=== PATIENT | male | born 1990 | race Caucasian/White ===

== ENCOUNTER 2018-12-16 11:20 | Emergency (ER) | payer OTHER ==
[~2018-12-16] VITALS: Ht 167.6 cm; Wt 70.0 kg
[2018-12-16] MEDS ORDERED: RISP.5 PO (12:03)
[2018-12-16 13:49] LABS: BASOPHILS % (AUTO) 1.1 % (0.0-2.0); EOSINOPHILS % (AUTO) 2.3 % (1.0-6.0); HEMATOCRIT 48.6 % (41-53); HEMOGLOBIN 16.8 g/dL (13.5-17.5); LYMPHOCYTES # (AUTO) 2.3 K/uL (1.0-4.8); LYMPHOCYTES % (AUTO) 27.4 % (22.0-44.0); MEAN CORPUSCULAR HEMOGLOBIN 29.4 pg (26.0-34.0); MEAN CORPUSCULAR HGB CONC 34.5 G/dL (31.0-37.0); MEAN CORPUSCULAR VOLUME 85 fL (80-100); MONOCYTES # (AUTO) 0.7 K/uL (0.1-1.0); MONOCYTES % (AUTO) 8.5 % (2.0-9.0); NEUTROPHILS % (AUTO) 60.7 % (40.0-70.0); PLATELET COUNT (AUTO) 251 K/uL (150-450); RED BLOOD CELL COUNT(AUTO) 5.71 MIL/uL (4.50-5.90); RED CELL DISTRIBUTION WIDTH 13.2 % (11.5-14.5)
[2018-12-16 13:57] LABS: ANION GAP 13 mmol/L (8-16); CALCIUM, TOTAL 9.4 mg/dL (8.8-10.5); CARBON DIOXIDE 28 mmol/L (22-29); CHLORIDE 103 mmol/L (98-107); CREATININE 1.07 mg/dL (0.60-1.30); GLOMERULAR FILTR. RATE CALC > 60 mL/min (>60); GLUCOSE,RANDOM 88 mg/dL (70-110); POTASSIUM 4.9 mmol/L (3.5-5.1); SODIUM SERUM 144 mmol/L (136-145); UREA NITROGEN, BLOOD 16 mg/dL (7-18)
[2018-12-16] MEDS ORDERED: ACETAMINOPHEN 325 MG TABLET PO ONE (14:00)
[2018-12-16 14:03] LABS: ALANINE AMINOTRANSFERASE 25 U/L (12-78); ALBUMIN 3.9 g/dL (3.4-5.0); ALKALINE PHOSPHATASE 83 U/L (46-116); ASPARTATE AMINOTRANSFERASE 17 U/L (15-37); BILIRUBIN,TOTAL 0.4 mg/dL (0.1-1.0); TOTAL PROTEIN, SERUM 7.9 g/dL (6.4-8.2)
[2018-12-16 14:08] VITALS: BP 111/81
== END 2018-12-16 14:27 | disposition home or self-care (01) ==
LOC: EMS 11:21
DX: R51 Headache (principal); F41.9 Anxiety disorder, unspecified; F20.9 Schizophrenia, unspecified
CPT/HCPCS: 70450

== ENCOUNTER 2018-12-17 07:00 | Emergency (ER) | payer OTHER ==
[~2018-12-17] VITALS: Ht 172.7 cm; Wt 69.5 kg
[~2018-12-17 07:00] MED LIST: RISP.5 PO
[2018-12-17 09:32] VITALS: BP 131/64
== END 2018-12-17 10:18 | disposition home or self-care (01) ==
LOC: EMS 07:02
DX: M62.838 Other muscle spasm (principal); F20.9 Schizophrenia, unspecified

== ENCOUNTER 2018-12-17 12:32 | Emergency (ER) | payer OTHER ==
[~2018-12-17] VITALS: Ht 172.7 cm; Wt 78.6 kg
[2018-12-17 14:30] VITALS: BP 122/79
== END 2018-12-17 14:53 | disposition home or self-care (01) ==
LOC: EMS 12:32
DX: M25.562 Pain in left knee (principal); F20.9 Schizophrenia, unspecified

== ENCOUNTER 2018-12-17 20:21 | Emergency (ER) | payer OTHER ==
[~2018-12-17] VITALS: Ht 172.7 cm; Wt 78.6 kg
[2018-12-17 21:36] VITALS: BP 136/79
== END 2018-12-17 21:51 | disposition home or self-care (01) ==
LOC: EMS 20:21
DX: K59.00 Constipation, unspecified (principal); K62.89 Other specified diseases of anus and rectum; G89.29 Other chronic pain; F20.9 Schizophrenia, unspecified

== ENCOUNTER 2018-12-18 13:15 | Emergency (ER) | payer OTHER ==
[~2018-12-18] VITALS: Ht 172.7 cm; Wt 78.6 kg
[2018-12-18 13:18] VITALS: BP 124/79
== END 2018-12-18 14:08 | disposition home or self-care (01) ==
LOC: EMS 13:15
DX: K59.00 Constipation, unspecified (principal); F20.9 Schizophrenia, unspecified

== ENCOUNTER 2018-12-19 01:47 | Emergency (ER) | payer OTHER ==
[~2018-12-19] VITALS: Ht 175.3 cm; Wt 79.5 kg
[2018-12-19 03:02] VITALS: BP 121/82
== END 2018-12-19 04:36 | disposition home or self-care (01) ==
LOC: EMS 01:48
DX: K59.00 Constipation, unspecified (principal); F20.9 Schizophrenia, unspecified; Z79.899 Other long term (current) drug therapy

== ENCOUNTER 2018-12-19 16:42 | Emergency (ER) | payer OTHER ==
[~2018-12-19] VITALS: Ht 167.6 cm; Wt 72.0 kg
[2018-12-19] MEDS ORDERED: MAGNESIUM CITRATE 300 ML ORAL SOLUTION PO ONE (17:45)
[2018-12-19 19:30] VITALS: BP 122/76
== END 2018-12-19 19:38 | disposition home or self-care (01) ==
LOC: EMS 16:45
DX: K59.00 Constipation, unspecified (principal); F20.9 Schizophrenia, unspecified

== ENCOUNTER 2018-12-20 11:53 | Emergency (ER) | payer OTHER ==
[~2018-12-20] VITALS: Ht 172.7 cm; Wt 77.3 kg
[2018-12-20 11:55] VITALS: BP 135/67
== END 2018-12-20 14:52 | disposition left against medical advice (07) ==
LOC: EMS 11:54
DX: F20.9 Schizophrenia, unspecified (principal)

== ENCOUNTER 2018-12-20 16:25 | Emergency (ER) | payer OTHER ==
[~2018-12-20] VITALS: Ht 162.6 cm; Wt 61.4 kg
[2018-12-20 18:40] LABS: BASOPHILS % (AUTO) 0.8 % (0.0-2.0); EOSINOPHILS % (AUTO) 2.8 % (1.0-6.0); HEMATOCRIT 46.2 % (41-53); HEMOGLOBIN 15.7 g/dL (13.5-17.5); LYMPHOCYTES # (AUTO) 3.1 K/uL (1.0-4.8); LYMPHOCYTES % (AUTO) 40.1 % (22.0-44.0); MEAN CORPUSCULAR HGB CONC 33.9 G/dL (31.0-37.0); MEAN CORPUSCULAR VOLUME 86 fL (80-100); MONOCYTES # (AUTO) 0.7 K/uL (0.1-1.0); MONOCYTES % (AUTO) 9.5 % (2.0-9.0); NEUTROPHILS # (AUTO) 3.6 K/uL (1.8-7.7); NEUTROPHILS % (AUTO) 46.8 % (40.0-70.0); PLATELET COUNT (AUTO) 259 K/uL (150-450)
[2018-12-20 18:54] LABS: ANION GAP 11 mmol/L (8-16); CARBON DIOXIDE 26 mmol/L (22-29); CHLORIDE 102 mmol/L (98-107); CREATININE 1.12 mg/dL (0.60-1.30); GLOMERULAR FILTR. RATE CALC > 60 mL/min (>60); GLUCOSE,RANDOM 82 mg/dL (70-110); POTASSIUM 3.4 mmol/L (3.5-5.1); SODIUM SERUM 139 mmol/L (136-145); UREA NITROGEN, BLOOD 15 mg/dL (7-18)
[2018-12-20 19:01] LABS: ALANINE AMINOTRANSFERASE 21 U/L (12-78); ALBUMIN 3.9 g/dL (3.4-5.0); ALKALINE PHOSPHATASE 77 U/L (46-116); ASPARTATE AMINOTRANSFERASE 16 U/L (15-37); BILIRUBIN,TOTAL 0.5 mg/dL (0.1-1.0); TOTAL PROTEIN, SERUM 7.5 g/dL (6.4-8.2)
[2018-12-20 19:31] LABS: AMPHET/METH SCREEN,URINE NEGATIVE (NEGATIVE); BARBITURATE SCREEN, URINE NEGATIVE (NEGATIVE); BENZODIAZEPINES SCREEN,URINE NEGATIVE (NEGATIVE); CANNABINOID SCREEN,URINE NEGATIVE (NEGATIVE); COCAINE SCREEN,URINE NEGATIVE (NEGATIVE); METHADONE SCREEN, URINE NEGATIVE (NEGATIVE); OPIATE SCREEN,URINE NEGATIVE (NEGATIVE); PHENCYCLIDINE SCREEN,URINE NEGATIVE (NEGATIVE)
[2018-12-20 20:15] VITALS: BP 121/74
== END 2018-12-20 20:20 | disposition home or self-care (01) ==
LOC: EMS 16:26
DX: F20.9 Schizophrenia, unspecified (principal); Z79.899 Other long term (current) drug therapy
CPT/HCPCS: 36415; 80053; 80307; 85025; 99284; G0480

== ENCOUNTER 2018-12-25 04:21 | Emergency (ER) | payer OTHER ==
[~2018-12-25] VITALS: Ht 167.6 cm; Wt 72.7 kg
[2018-12-25] MEDS ORDERED: ACETAMINOPHEN 325 MG TABLET PO ONE (05:00)
[2018-12-25] MEDS ORDERED: ACETAMINOPHEN 325 MG TABLET ONE (05:05)
[2018-12-25 05:40] VITALS: BP 138/71
== END 2018-12-25 05:56 | disposition home or self-care (01) ==
LOC: EMS 04:22
DX: M54.2 Cervicalgia (principal); F20.9 Schizophrenia, unspecified; Z79.899 Other long term (current) drug therapy

== ENCOUNTER 2018-12-25 11:47 | Emergency (ER) | payer OTHER ==
[~2018-12-25] VITALS: Ht 170.2 cm; Wt 68.2 kg
[2018-12-25] MEDS ORDERED: RisperiDONE 0.5 MG TABLET PO ONE (13:00)
[2018-12-25 13:18] VITALS: BP 128/86
== END 2018-12-25 13:21 | disposition home or self-care (01) ==
LOC: EMS 11:49
DX: F20.9 Schizophrenia, unspecified (principal); K59.00 Constipation, unspecified

== ENCOUNTER 2018-12-29 17:22 | Emergency (ER) | payer OTHER ==
[~2018-12-29] VITALS: Ht 172.7 cm; Wt 77.3 kg
[2018-12-29] MEDS ORDERED: RISP.5 PO (17:58)
[2018-12-29] MEDS ORDERED: QUET25TA PO (17:58)
[2018-12-29 18:22] LABS: BASOPHILS % (AUTO) 1.3 % (0.0-2.0); EOSINOPHILS % (AUTO) 2.5 % (1.0-6.0); HEMATOCRIT 44.5 % (41-53); HEMOGLOBIN 15.4 g/dL (13.5-17.5); LYMPHOCYTES # (AUTO) 3.1 K/uL (1.0-4.8); LYMPHOCYTES % (AUTO) 42.7 % (22.0-44.0); MEAN CORPUSCULAR HGB CONC 34.6 G/dL (31.0-37.0); MEAN CORPUSCULAR VOLUME 84 fL (80-100); MONOCYTES # (AUTO) 0.7 K/uL (0.1-1.0); MONOCYTES % (AUTO) 9.1 % (2.0-9.0); NEUTROPHILS # (AUTO) 3.2 K/uL (1.8-7.7); NEUTROPHILS % (AUTO) 44.4 % (40.0-70.0); PLATELET COUNT (AUTO) 256 K/uL (150-450); RED BLOOD CELL COUNT(AUTO) 5.31 MIL/uL (4.50-5.90); RED CELL DISTRIBUTION WIDTH 12.9 % (11.5-14.5)
[2018-12-29 18:44] LABS: ALANINE AMINOTRANSFERASE 23 U/L (12-78); ALBUMIN 3.9 g/dL (3.4-5.0); ALKALINE PHOSPHATASE 74 U/L (46-116); ANION GAP 12 mmol/L (8-16); ASPARTATE AMINOTRANSFERASE 19 U/L (15-37); BILIRUBIN,TOTAL 0.6 mg/dL (0.1-1.0); CALCIUM, TOTAL 9.4 mg/dL (8.8-10.5); CARBON DIOXIDE 25 mmol/L (22-29); CHLORIDE 102 mmol/L (98-107); CREATININE 1.21 mg/dL (0.60-1.30); GLOMERULAR FILTR. RATE CALC > 60 mL/min (>60); GLUCOSE,RANDOM 78 mg/dL (70-110); SODIUM SERUM 139 mmol/L (136-145); TOTAL PROTEIN, SERUM 7.3 g/dL (6.4-8.2)
[2018-12-29 18:59] LABS: UREA NITROGEN, BLOOD 18 mg/dL (7-18)
[2018-12-29 19:08] LABS: AMPHET/METH SCREEN,URINE NEGATIVE (NEGATIVE); BARBITURATE SCREEN, URINE NEGATIVE (NEGATIVE); BENZODIAZEPINES SCREEN,URINE NEGATIVE (NEGATIVE); CANNABINOID SCREEN,URINE NEGATIVE (NEGATIVE); COCAINE SCREEN,URINE NEGATIVE (NEGATIVE); METHADONE SCREEN, URINE NEGATIVE (NEGATIVE); OPIATE SCREEN,URINE NEGATIVE (NEGATIVE); PHENCYCLIDINE SCREEN,URINE NEGATIVE (NEGATIVE)
[2018-12-29] MEDS ORDERED: ACETAMINOPHEN 500 MG TABLET PO ONE (19:30)
[2018-12-29 20:32] LABS: APPEARANCE,URINE CLEAR (CLEAR); GLUCOSE, URINE (UA) NEGATIVE (NEGATIVE); KETONES,URINE 40 mg/dL (NEGATIVE); LEUKOCYTE ESTERASE ,URINE NEGATIVE (NEGATIVE); NITRATE,URINE NEGATIVE (NEGATIVE); OCCULT BLOOD,URINE NEGATIVE (NEGATIVE); PROTEIN,URINE NEGATIVE (NEGATIVE)
[2018-12-29 20:33] LABS: BILIRUBIN,URINE PRELIM. POSITIVE (NEGATIVE)
[2018-12-29 21:00] VITALS: BP 114/70
== END 2018-12-29 21:05 | disposition home or self-care (01) ==
LOC: EMS 17:23
DX: R51 Headache (principal); F20.9 Schizophrenia, unspecified; G24.01 Drug induced subacute dyskinesia

== ENCOUNTER 2018-12-31 18:21 | Emergency (ER) | payer OTHER ==
[~2018-12-31] VITALS: Ht 170.2 cm; Wt 77.3 kg
[~2018-12-31 18:21] MED LIST changes: +QUET25TA PO
[2018-12-31 21:15] VITALS: BP 105/72
== END 2018-12-31 21:16 | disposition home or self-care (01) ==
LOC: EMS 18:22
DX: K59.00 Constipation, unspecified (principal); F20.9 Schizophrenia, unspecified

== ENCOUNTER 2019-01-01 08:31 | Emergency (ER) | payer OTHER ==
[~2019-01-01] VITALS: Ht 172.7 cm; Wt 77.3 kg
[2019-01-01] MEDS ORDERED: MAGNESIUM CITRATE 300 ML ORAL SOLUTION PO ONE (09:45)
[2019-01-01 09:56] VITALS: BP 118/76
== END 2019-01-01 10:09 | disposition home or self-care (01) ==
LOC: EMS 08:31
DX: K59.00 Constipation, unspecified (principal); F20.9 Schizophrenia, unspecified

== ENCOUNTER 2019-01-02 06:31 | Emergency (ER) | payer OTHER ==
[~2019-01-02] VITALS: Ht 170.2 cm; Wt 77.3 kg
[2019-01-02] MEDS ORDERED: KETOROLAC TROMETHAMINE 60 MG/2 ML VIAL IM ONE (07:45)
[2019-01-02] MEDS ORDERED: OXYMETAZOLINE HCL 0.05% 15 ML NASAL SPRAY NASAL ONE (08:00)
[2019-01-02 08:30] VITALS: BP 112/79
== END 2019-01-02 09:04 | disposition home or self-care (01) ==
LOC: EMS 06:33
DX: R51 Headache (principal); J06.9 Acute upper respiratory infection, unspecified; F20.9 Schizophrenia, unspecified
CPT/HCPCS: 96372; 99283; J1885

== ENCOUNTER 2019-01-02 21:04 | Emergency (ER) | payer OTHER ==
[~2019-01-02] VITALS: Ht 170.2 cm; Wt 77.3 kg
[2019-01-02 21:22] VITALS: BP 113/66
[2019-01-03] MEDS ORDERED: MAGNESIUM CITRATE 300 ML ORAL SOLUTION PO ONE (01:30)
[2019-01-03] MEDS ORDERED: LORazepam 1 MG TABLET PO ONE (01:45)
[2019-01-03] MEDS ORDERED: PB/HYOSCY/ATR/SCOP/LIDO/MAALOX 55 ML BOTTLE PO ONE (01:45)
== END 2019-01-03 02:12 | disposition home or self-care (01) ==
LOC: EMS 21:06
DX: F20.9 Schizophrenia, unspecified (principal); K59.00 Constipation, unspecified; Z79.899 Other long term (current) drug therapy

== ENCOUNTER 2019-01-05 07:37 | Emergency (ER) | payer OTHER ==
[~2019-01-05] VITALS: Ht 170.2 cm; Wt 150.0 kg
[2019-01-05 10:12] VITALS: BP 114/66
== END 2019-01-05 10:17 | disposition home or self-care (01) ==
LOC: EMS 07:39
DX: J02.9 Acute pharyngitis, unspecified (principal); F20.9 Schizophrenia, unspecified
CPT/HCPCS: 87430

== ENCOUNTER 2019-01-05 13:35 | Emergency (ER) | payer OTHER ==
[~2019-01-05] VITALS: Ht 162.6 cm; Wt 77.3 kg
[2019-01-05 13:55] VITALS: BP 130/78
== END 2019-01-05 14:57 | disposition home or self-care (01) ==
LOC: EMS 13:36
DX: F20.0 Paranoid schizophrenia (principal); J02.9 Acute pharyngitis, unspecified

== ENCOUNTER 2019-01-06 21:41 | Emergency (ER) | payer OTHER ==
[~2019-01-06] VITALS: Ht 175.3 cm; Wt 80.9 kg
[2019-01-06 22:23] VITALS: BP 130/88
== END 2019-01-06 22:30 | disposition home or self-care (01) ==
LOC: EMS 21:41
DX: J03.90 Acute tonsillitis, unspecified (principal); F20.9 Schizophrenia, unspecified

== ENCOUNTER 2019-01-09 21:37 | Emergency (ER) | payer OTHER ==
[~2019-01-09] VITALS: Ht 170.2 cm; Wt 77.3 kg
[2019-01-09 22:23] VITALS: BP 118/70
== END 2019-01-09 22:39 | disposition home or self-care (01) ==
LOC: EMS 21:37
DX: H57.11 Ocular pain, right eye (principal); F20.9 Schizophrenia, unspecified

== ENCOUNTER 2019-01-11 00:06 | Emergency (ER) | payer OTHER ==
[~2019-01-11] VITALS: Ht 170.2 cm; Wt 77.3 kg
[2019-01-11 00:07] VITALS: BP 133/78
== END 2019-01-11 01:30 | disposition left against medical advice (07) ==
LOC: EMS 00:07
DX: R51 Headache (principal); Z53.21 Procedure and treatment not carried out due to patient leaving prior to being seen by health care provider

== ENCOUNTER 2019-01-15 16:41 | Emergency (ER) | payer OTHER ==
[~2019-01-15] VITALS: Ht 170.2 cm; Wt 72.7 kg
[2019-01-15 16:46] VITALS: BP 151/85
[2019-01-15] MEDS ORDERED: ACETAMINOPHEN 500 MG TABLET PO ONE (17:30)
[2019-01-16] MEDS ORDERED: OMEG-112 PO (18:05)
== END 2019-01-15 18:36 | disposition home or self-care (01) ==
LOC: EMS 16:42
DX: R51 Headache (principal); F20.9 Schizophrenia, unspecified

== ENCOUNTER 2019-01-16 18:03 | Emergency (ER) | payer OTHER ==
[~2019-01-16] VITALS: Ht 170.2 cm; Wt 75.0 kg
[2019-01-16] MEDS ORDERED: OMEG-112 PO (18:05)
[2019-01-16] MEDS ORDERED: ACETAMINOPHEN 325 MG TABLET PO ONE (20:00)
[2019-01-16 20:50] VITALS: BP 132/75
== END 2019-01-16 20:59 | disposition home or self-care (01) ==
LOC: EMS 18:03
DX: M25.552 Pain in left hip (principal); F20.9 Schizophrenia, unspecified; Z79.899 Other long term (current) drug therapy

== ENCOUNTER 2019-01-20 20:58 | Emergency (ER) | payer SELFPAY ==
[~2019-01-20] VITALS: Ht 170.2 cm; Wt 75.0 kg
[~2019-01-20 20:58] MED LIST changes: +OMEG-112 PO
[2019-01-20] MEDS ORDERED: NAPHAZOLINE/PHENIR 0.025-0.3% 15 ML OPHTHALMIC SOLUTION OU ONE (22:30)
[2019-01-20 23:20] VITALS: BP 121/77
== END 2019-01-20 23:40 | disposition home or self-care (01) ==
LOC: EMS 20:59
DX: H10.13 Acute atopic conjunctivitis, bilateral (principal); F20.9 Schizophrenia, unspecified

== ENCOUNTER 2019-01-22 08:08 | Emergency (ER) | payer SELFPAY ==
[~2019-01-22] VITALS: Ht 170.2 cm; Wt 72.7 kg
[2019-01-22 08:40] VITALS: BP 126/73
[2019-01-22] MEDS ORDERED: IBUPROFEN 600 MG TABLET PO ONE (08:45)
== END 2019-01-22 09:02 | disposition home or self-care (01) ==
LOC: EMS 08:09
DX: M25.512 Pain in left shoulder (principal); F20.9 Schizophrenia, unspecified

== ENCOUNTER 2019-01-22 16:59 | Emergency (ER) | payer SELFPAY ==
[~2019-01-22] VITALS: Ht 170.2 cm; Wt 72.7 kg
[2019-01-22 17:06] VITALS: BP 110/66
[2019-01-22] MEDS ORDERED: ACETAMINOPHEN 325 MG TABLET PO ONE (19:15)
== END 2019-01-22 19:19 | disposition home or self-care (01) ==
LOC: EMS 16:59
DX: M25.552 Pain in left hip (principal); F20.9 Schizophrenia, unspecified

== ENCOUNTER 2019-01-23 15:14 | Emergency (ER) | payer SELFPAY ==
[~2019-01-23] VITALS: Ht 170.2 cm; Wt 75.0 kg
[2019-01-23] MEDS ORDERED: HYPROMELLOSE 0.5% 15 ML OPHTHALMIC SOLUTION OU ONE (17:00)
[2019-01-23 17:39] VITALS: BP 115/79
== END 2019-01-23 17:40 | disposition home or self-care (01) ==
LOC: EMS 15:15
DX: H57.11 Ocular pain, right eye (principal); F20.9 Schizophrenia, unspecified

== ENCOUNTER 2019-01-25 17:40 | Emergency (ER) | payer OTHER ==
[~2019-01-25] VITALS: Ht 170.2 cm; Wt 77.3 kg
[2019-01-25] MEDS ORDERED: QUET25TA PO (17:45)
[2019-01-25] MEDS ORDERED: RISP.5 PO (17:45)
[2019-01-25] MEDS ORDERED: IBUPROFEN 600 MG TABLET PO ONE (19:00)
[2019-01-25] MEDS ORDERED: ACETAMINOPHEN 500 MG TABLET PO ONE (19:00)
[2019-01-25 19:20] VITALS: BP 130/74
[2019-01-29] MEDS ORDERED: LORA0.5T2 PO (03:24)
== END 2019-01-25 20:04 | disposition home or self-care (01) ==
LOC: EMS 17:41
DX: R51 Headache (principal); F20.9 Schizophrenia, unspecified; Z79.899 Other long term (current) drug therapy

== ENCOUNTER 2019-01-27 20:52 | Emergency (ER) | payer MEDICAID, OTHER ==
[~2019-01-27] VITALS: Ht 177.8 cm; Wt 81.8 kg
[~2019-01-27 20:52] MED LIST changes: -OMEG-112 PO
[2019-01-27 21:25] VITALS: BP 126/91
[2019-01-27 23:43] LABS: BASOPHILS % (AUTO) 1.2 % (0.0-2.0); EOSINOPHILS % (AUTO) 4.9 % (1.0-6.0); HEMATOCRIT 44.4 % (41-53); HEMOGLOBIN 14.8 g/dL (13.5-17.5); LYMPHOCYTES # (AUTO) 3.3 K/uL (1.0-4.8); LYMPHOCYTES % (AUTO) 45.1 % (22.0-44.0); MEAN CORPUSCULAR HEMOGLOBIN 28.8 pg (26.0-34.0); MEAN CORPUSCULAR HGB CONC 33.4 G/dL (31.0-37.0); MEAN CORPUSCULAR VOLUME 86 fL (80-100); MONOCYTES # (AUTO) 0.6 K/uL (0.1-1.0); MONOCYTES % (AUTO) 8.7 % (2.0-9.0); NEUTROPHILS % (AUTO) 40.1 % (40.0-70.0); RED BLOOD CELL COUNT(AUTO) 5.14 MIL/uL (4.50-5.90); RED CELL DISTRIBUTION WIDTH 13.4 % (11.5-14.5)
[2019-01-27 23:54] LABS: ANION GAP 7 mmol/L (8-16); CALCIUM, TOTAL 9.1 mg/dL (8.8-10.5); CARBON DIOXIDE 27 mmol/L (22-29); CHLORIDE 104 mmol/L (98-107); CREATININE 0.99 mg/dL (0.60-1.30); GLOMERULAR FILTR. RATE CALC > 60 mL/min (>60); GLUCOSE,RANDOM 84 mg/dL (70-110); PLATELET COUNT (AUTO) 225 K/uL (150-450); SODIUM SERUM 138 mmol/L (136-145); UREA NITROGEN, BLOOD 22 mg/dL (7-18)
[2019-01-27 23:59] LABS: ALANINE AMINOTRANSFERASE 26 U/L (12-78); ALBUMIN 3.9 g/dL (3.4-5.0); ALKALINE PHOSPHATASE 74 U/L (46-116); ASPARTATE AMINOTRANSFERASE 20 U/L (15-37); BILIRUBIN,TOTAL 0.5 mg/dL (0.1-1.0); TOTAL PROTEIN, SERUM 7.4 g/dL (6.4-8.2)
[2019-01-29] MEDS ORDERED: LORA0.5T2 PO (03:24)
== END 2019-01-28 01:05 | disposition home or self-care (01) ==
LOC: EMS 20:52
DX: F20.9 Schizophrenia, unspecified (principal)
CPT/HCPCS: 36415; 80053; 85025; 99284; G0480

== ENCOUNTER 2019-01-29 08:10 | Emergency (ER) | payer MEDICAID ==
[~2019-01-29] VITALS: Ht 170.2 cm; Wt 77.3 kg
[~2019-01-29 08:10] MED LIST changes: +LORA0.5T2 PO
[2019-01-29 09:56] VITALS: BP 120/69
== END 2019-01-29 09:46 | disposition home or self-care (01) ==
LOC: EMS 08:27
DX: F20.9 Schizophrenia, unspecified (principal); G40.909 Epilepsy, unspecified, not intractable, without status epilepticus; Z59.0 Homelessness; Z79.899 Other long term (current) drug therapy

== ENCOUNTER 2019-02-10 00:53 | Emergency (ER) | payer MEDICAID ==
[~2019-02-10] VITALS: Ht 170.2 cm; Wt 68.2 kg
[~2019-02-10 00:53] MED LIST changes: +ARIP15TA2 PO; -LORA0.5T2 PO; -QUET25TA PO; -RISP.5 PO
[2019-02-10 01:59] LABS: BASOPHILS % (AUTO) 1.3 % (0.0-2.0); EOSINOPHILS % (AUTO) 7.6 % (1.0-6.0); HEMATOCRIT 44.2 % (41-53); LYMPHOCYTES # (AUTO) 3.2 K/uL (1.0-4.8); LYMPHOCYTES % (AUTO) 47.6 % (22.0-44.0); MEAN CORPUSCULAR HEMOGLOBIN 29.3 pg (26.0-34.0); MEAN CORPUSCULAR HGB CONC 33.9 G/dL (31.0-37.0); MEAN CORPUSCULAR VOLUME 87 fL (80-100); MONOCYTES # (AUTO) 0.6 K/uL (0.1-1.0); MONOCYTES % (AUTO) 9.2 % (2.0-9.0); NEUTROPHILS # (AUTO) 2.3 K/uL (1.8-7.7); NEUTROPHILS % (AUTO) 34.3 % (40.0-70.0); PLATELET COUNT (AUTO) 255 K/uL (150-450); RED BLOOD CELL COUNT(AUTO) 5.11 MIL/uL (4.50-5.90); RED CELL DISTRIBUTION WIDTH 13.2 % (11.5-14.5)
[2019-02-10 02:08] LABS: ANION GAP 5 mmol/L (8-16); CARBON DIOXIDE 34 mmol/L (22-29); CHLORIDE 105 mmol/L (98-107); CREATININE 1.39 mg/dL (0.60-1.30); GLOMERULAR FILTR. RATE CALC > 60 mL/min (>60); GLUCOSE,RANDOM 66 mg/dL (70-110); SODIUM SERUM 144 mmol/L (136-145); UREA NITROGEN, BLOOD 24 mg/dL (7-18)
[2019-02-10 02:13] LABS: ALANINE AMINOTRANSFERASE 27 U/L (12-78); ALBUMIN 3.5 g/dL (3.4-5.0); ALKALINE PHOSPHATASE 82 U/L (46-116); ASPARTATE AMINOTRANSFERASE 17 U/L (15-37); BILIRUBIN,TOTAL 0.3 mg/dL (0.1-1.0)
[2019-02-10 05:09] LABS: AMPHET/METH SCREEN,URINE NEGATIVE (NEGATIVE); BARBITURATE SCREEN, URINE NEGATIVE (NEGATIVE); BENZODIAZEPINES SCREEN,URINE NEGATIVE (NEGATIVE); CANNABINOID SCREEN,URINE NEGATIVE (NEGATIVE); COCAINE SCREEN,URINE NEGATIVE (NEGATIVE); METHADONE SCREEN, URINE NEGATIVE (NEGATIVE); OPIATE SCREEN,URINE NEGATIVE (NEGATIVE); PHENCYCLIDINE SCREEN,URINE NEGATIVE (NEGATIVE)
[2019-02-10 09:47] VITALS: BP 118/74
== END 2019-02-10 10:02 | disposition home or self-care (01) ==
LOC: EMS 00:56
DX: F25.9 Schizoaffective disorder, unspecified (principal); F32.9 Major depressive disorder, single episode, unspecified; Z79.899 Other long term (current) drug therapy
CPT/HCPCS: 36415; 80053; 80307; 85025; 99284; G0480

== ENCOUNTER 2019-02-10 21:42 | Emergency (ER) | payer MEDICAID ==
[~2019-02-10] VITALS: Ht 167.6 cm; Wt 63.6 kg
[2019-02-11 00:13] VITALS: BP 142/78
== END 2019-02-11 00:33 | disposition home or self-care (01) ==
LOC: EMS 21:46
DX: R25.2 Cramp and spasm (principal); G40.909 Epilepsy, unspecified, not intractable, without status epilepticus; F20.9 Schizophrenia, unspecified; Z79.899 Other long term (current) drug therapy

== ENCOUNTER 2019-02-24 23:09 | Emergency (ER) | payer MEDICAID ==
[~2019-02-24] VITALS: Ht 170.2 cm; Wt 75.0 kg
[2019-02-25 03:55] LABS: BASOPHILS % (AUTO) 1.1 % (0.0-2.0); EOSINOPHILS % (AUTO) 3.7 % (1.0-6.0); HEMATOCRIT 42.8 % (41-53); HEMOGLOBIN 14.5 g/dL (13.5-17.5); LYMPHOCYTES % (AUTO) 50.8 % (22.0-44.0); MEAN CORPUSCULAR HEMOGLOBIN 29.5 pg (26.0-34.0); MEAN CORPUSCULAR HGB CONC 33.8 G/dL (31.0-37.0); MEAN CORPUSCULAR VOLUME 87 fL (80-100); MONOCYTES # (AUTO) 0.7 K/uL (0.1-1.0); MONOCYTES % (AUTO) 8.5 % (2.0-9.0); NEUTROPHILS # (AUTO) 2.8 K/uL (1.8-7.7); NEUTROPHILS % (AUTO) 35.9 % (40.0-70.0); PLATELET COUNT (AUTO) 250 K/uL (150-450); RED BLOOD CELL COUNT(AUTO) 4.91 MIL/uL (4.50-5.90); RED CELL DISTRIBUTION WIDTH 13.8 % (11.5-14.5)
[2019-02-25 03:59] LABS: ANION GAP 9 mmol/L (8-16); CALCIUM, TOTAL 8.7 mg/dL (8.8-10.5); CARBON DIOXIDE 26 mmol/L (22-29); CHLORIDE 106 mmol/L (98-107); CREATININE 1.05 mg/dL (0.60-1.30); GLOMERULAR FILTR. RATE CALC > 60 mL/min (>60); GLUCOSE,RANDOM 89 mg/dL (70-110); POTASSIUM 3.8 mmol/L (3.5-5.1); SODIUM SERUM 141 mmol/L (136-145); UREA NITROGEN, BLOOD 13 mg/dL (7-18)
[2019-02-25 04:01] LABS: AMPHET/METH SCREEN,URINE NEGATIVE (NEGATIVE); BARBITURATE SCREEN, URINE NEGATIVE (NEGATIVE); BENZODIAZEPINES SCREEN,URINE NEGATIVE (NEGATIVE); CANNABINOID SCREEN,URINE NEGATIVE (NEGATIVE); COCAINE SCREEN,URINE NEGATIVE (NEGATIVE); METHADONE SCREEN, URINE NEGATIVE (NEGATIVE); OPIATE SCREEN,URINE NEGATIVE (NEGATIVE); PHENCYCLIDINE SCREEN,URINE NEGATIVE (NEGATIVE)
[2019-02-25 04:04] LABS: ALANINE AMINOTRANSFERASE 32 U/L (12-78); ALBUMIN 3.3 g/dL (3.4-5.0); ALKALINE PHOSPHATASE 76 U/L (46-116); ASPARTATE AMINOTRANSFERASE 22 U/L (15-37); BILIRUBIN,TOTAL 0.3 mg/dL (0.1-1.0); TOTAL PROTEIN, SERUM 6.8 g/dL (6.4-8.2)
[2019-02-25 04:35] VITALS: BP 122/84
== END 2019-02-25 04:37 | disposition home or self-care (01) ==
LOC: EMS 23:10
DX: F20.9 Schizophrenia, unspecified (principal)
CPT/HCPCS: 36415; 80053; 80307; 85025; 99284; G0480

== ENCOUNTER 2019-02-25 11:06 | Emergency (ER) | payer MEDICAID ==
[~2019-02-25] VITALS: Ht 170.2 cm; Wt 75.0 kg
[2019-02-25 13:18] VITALS: BP 131/66
== END 2019-02-25 13:24 | disposition home or self-care (01) ==
LOC: EMS 11:06
DX: F20.9 Schizophrenia, unspecified (principal); R51 Headache; G40.909 Epilepsy, unspecified, not intractable, without status epilepticus; Z79.899 Other long term (current) drug therapy

== ENCOUNTER 2019-02-26 20:10 | Inpatient (IN) | payer MEDICAID ==
[~2019-02-26] VITALS: Ht 170.2 cm; Wt 71.7 kg
[2019-02-26 21:12] LABS: BASOPHILS % (AUTO) 1.2 % (0.0-2.0); HEMATOCRIT 45.5 % (41-53); HEMOGLOBIN 15.3 g/dL (13.5-17.5); LYMPHOCYTES # (AUTO) 3.5 K/uL (1.0-4.8); LYMPHOCYTES % (AUTO) 41.1 % (22.0-44.0); MEAN CORPUSCULAR HEMOGLOBIN 29.3 pg (26.0-34.0); MEAN CORPUSCULAR HGB CONC 33.5 G/dL (31.0-37.0); MEAN CORPUSCULAR VOLUME 87 fL (80-100); MONOCYTES # (AUTO) 0.8 K/uL (0.1-1.0); MONOCYTES % (AUTO) 9.3 % (2.0-9.0); NEUTROPHILS # (AUTO) 3.8 K/uL (1.8-7.7); NEUTROPHILS % (AUTO) 44.4 % (40.0-70.0); PLATELET COUNT (AUTO) 266 K/uL (150-450); RED BLOOD CELL COUNT(AUTO) 5.22 MIL/uL (4.50-5.90); RED CELL DISTRIBUTION WIDTH 13.7 % (11.5-14.5)
[2019-02-26 21:29] LABS: ANION GAP 5 mmol/L (8-16); CALCIUM, TOTAL 9.1 mg/dL (8.8-10.5); CARBON DIOXIDE 31 mmol/L (22-29); CHLORIDE 107 mmol/L (98-107); CREATININE 1.02 mg/dL (0.60-1.30); GLOMERULAR FILTR. RATE CALC > 60 mL/min (>60); GLUCOSE,RANDOM 88 mg/dL (70-110); POTASSIUM 4.2 mmol/L (3.5-5.1); SODIUM SERUM 143 mmol/L (136-145); UREA NITROGEN, BLOOD 14 mg/dL (7-18)
[2019-02-26 21:36] LABS: ALANINE AMINOTRANSFERASE 27 U/L (12-78); ALBUMIN 3.4 g/dL (3.4-5.0); ALKALINE PHOSPHATASE 79 U/L (46-116); ASPARTATE AMINOTRANSFERASE 17 U/L (15-37); BILIRUBIN,TOTAL 0.2 mg/dL (0.1-1.0); TOTAL PROTEIN, SERUM 7.2 g/dL (6.4-8.2)
[2019-02-26 23:14] LABS: AMPHET/METH SCREEN,URINE NEGATIVE (NEGATIVE); BARBITURATE SCREEN, URINE NEGATIVE (NEGATIVE); BENZODIAZEPINES SCREEN,URINE NEGATIVE (NEGATIVE); CANNABINOID SCREEN,URINE NEGATIVE (NEGATIVE); COCAINE SCREEN,URINE NEGATIVE (NEGATIVE); METHADONE SCREEN, URINE NEGATIVE (NEGATIVE); OPIATE SCREEN,URINE NEGATIVE (NEGATIVE)
[2019-02-26 23:15] LABS: PHENCYCLIDINE SCREEN,URINE NEGATIVE (NEGATIVE)
[2019-02-27] MEDS ORDERED: ZOLPIDEM TARTRATE 10 MG TABLET PO PRN (03:00)
[2019-02-27] MEDS ORDERED: HALOPERIDOL 5 MG TABLET PO PRN (03:00)
[2019-02-27 04:39] LABS: APPEARANCE,URINE CLOUDY (CLEAR); BILIRUBIN,URINE NEGATIVE (NEGATIVE); GLUCOSE, URINE (UA) NEGATIVE (NEGATIVE); KETONES,URINE NEGATIVE (NEGATIVE); LEUKOCYTE ESTERASE ,URINE NEGATIVE (NEGATIVE); NITRATE,URINE NEGATIVE (NEGATIVE); OCCULT BLOOD,URINE NEGATIVE (NEGATIVE); PH,URINE 5.5 (5.0-8.0); PROTEIN,URINE NEGATIVE (NEGATIVE); UROBILINOGEN,URINE 0.2 mg/dL (<=1.0)
[2019-02-27] MEDS: LORazepam 2 MG TABLET PO PRN (13:24)
[2019-02-27 20:45] VITALS: BP 107/74
[2019-02-27] MEDS ORDERED: PETROLATUM,WHITE 28 GM JELLY TP PRN (20:45)
[2019-02-27] MEDS ORDERED: GuaiFENesin/D-METHORPHAN [SUGAR-FREE] 200-20MG/10 ML SYRUP UDCUP PO PRN (20:45)
[2019-02-27] MEDS ORDERED: IBUPROFEN 400 MG TABLET PO PRN (20:45)
[2019-02-27] MEDS ORDERED: ALBUTEROL SULFATE HFA 90 MCG/PUFF 8 GM INHALER IH PRN (20:45)
[2019-02-27] MEDS ORDERED: LOPERAMIDE HCL 2 MG CAPSULE PO PRN (20:45)
[2019-02-27] MEDS ORDERED: ACETAMINOPHEN 325 MG TABLET PO PRN (20:45)
[2019-02-27] MEDS ORDERED: MAG HYDROX/AL HYDROX/SIMETH ES 30 ML SUSPENSION UDCUP PO PRN (20:45)
[2019-02-27] MEDS ORDERED: DOCUSATE SODIUM 100 MG CAPSULE PO PRN (20:45)
[2019-02-27] MEDS ORDERED: ONDANSETRON HCL 4 MG TABLET PO PRN (20:45)
[2019-02-27] MEDS ORDERED: CloNIDine HCL 0.1 MG TABLET PO PRN (20:45)
[2019-02-28 05:42] LABS: BASOPHILS % (AUTO) 0.8 % (0.0-2.0); EOSINOPHILS % (AUTO) 3.7 % (1.0-6.0); HEMATOCRIT 45.1 % (41-53); HEMOGLOBIN 15.1 g/dL (13.5-17.5); LYMPHOCYTES # (AUTO) 3.3 K/uL (1.0-4.8); LYMPHOCYTES % (AUTO) 39.4 % (22.0-44.0); MEAN CORPUSCULAR HEMOGLOBIN 29.3 pg (26.0-34.0); MEAN CORPUSCULAR HGB CONC 33.6 G/dL (31.0-37.0); MEAN CORPUSCULAR VOLUME 87 fL (80-100); MONOCYTES # (AUTO) 0.8 K/uL (0.1-1.0); MONOCYTES % (AUTO) 9.4 % (2.0-9.0); NEUTROPHILS # (AUTO) 3.9 K/uL (1.8-7.7); NEUTROPHILS % (AUTO) 46.7 % (40.0-70.0); PLATELET COUNT (AUTO) 227 K/uL (150-450); RED BLOOD CELL COUNT(AUTO) 5.17 MIL/uL (4.50-5.90); RED CELL DISTRIBUTION WIDTH 13.6 % (11.5-14.5)
[2019-02-28 05:52] LABS: HEMOGLOBIN A1C 5.2 % (4.5-6.2)
[2019-02-28 06:08] LABS: CHOL/HDL RATIO 3.6 (4.2-7.3); THYROID STIMULATING HORMONE 1.09 uIU/mL (0.36-3.74)
[2019-02-28 08:00] VITALS: BP 137/77
[2019-02-28] MEDS: ARIPiprazole 15 MG TABLET PO SCH (09:01)
[2019-02-28] MEDS: LORazepam 2 MG TABLET PO PRN (09:20)
[2019-02-28 17:06] VITALS: BP 96/55
[2019-03-01 08:05] VITALS: BP 118/74
[2019-03-01] MEDS: ARIPiprazole 15 MG TABLET PO SCH (09:34)
[2019-03-01 16:45] VITALS: BP 111/57
[2019-03-02 08:05] VITALS: BP 107/65
[2019-03-02] MEDS: ARIPiprazole 15 MG TABLET PO SCH (09:15)
[2019-03-02 17:15] VITALS: BP 98/57
[2019-03-03 08:00] VITALS: BP 109/73
[2019-03-03] MEDS: ARIPiprazole 15 MG TABLET PO SCH (08:26)
[2019-03-03] MEDS: MAGNESIUM HYDROXIDE SUSPENSION 30 ML UDCUP PO PRN (08:55)
[2019-03-03] MEDS ORDERED: ARIPiprazole 10 MG TABLET PO SCH (09:00)
[2019-03-03] MEDS ORDERED: ARIPiprazole LAUROXIL ER SUSPENSION 882 MG/3.2 ML SYRINGE IM SCH (15:15)
[2019-03-03 16:50] VITALS: BP 110/71
[2019-03-04 08:05] VITALS: BP 104/71
[2019-03-04] MEDS: ARIPiprazole 15 MG TABLET PO SCH (09:45)
[2019-03-04 16:47] VITALS: BP 108/69
[2019-03-05 07:37] LABS: APPEARANCE,URINE CLEAR (CLEAR); BILIRUBIN,URINE NEGATIVE (NEGATIVE); GLUCOSE, URINE (UA) NEGATIVE (NEGATIVE); KETONES,URINE NEGATIVE (NEGATIVE); LEUKOCYTE ESTERASE ,URINE NEGATIVE (NEGATIVE); NITRATE,URINE NEGATIVE (NEGATIVE); OCCULT BLOOD,URINE NEGATIVE (NEGATIVE); PROTEIN,URINE NEGATIVE (NEGATIVE); UROBILINOGEN,URINE 0.2 mg/dL (<=1.0)
[2019-03-05] MEDS: ARIPiprazole 15 MG TABLET PO SCH (08:15)
[2019-03-05 09:25] VITALS: BP 117/67
[2019-03-05 16:22] VITALS: BP 101/73
[2019-03-06 08:05] VITALS: BP 108/76
[2019-03-06] MEDS: ARIPiprazole 15 MG TABLET PO SCH (08:49)
[2019-03-06] MEDS: MAGNESIUM HYDROXIDE SUSPENSION 30 ML UDCUP PO PRN (10:55)
[2019-03-08] MEDS ORDERED: ARIP882S IM (13:30)
== END 2019-03-06 15:15 | disposition home or self-care (01) | DRG 750 ==
LOC: EMS 20:11 → 3EI 02-27 19:13
PROVIDERS: ADMIT Psychiatry & Neurology Psychiatry; ATTEND Psychiatry & Neurology Psychiatry
DX: F20.0 Paranoid schizophrenia (principal); R45.851 Suicidal ideations; F20.2 Catatonic schizophrenia; G40.909 Epilepsy, unspecified, not intractable, without status epilepticus; K59.00 Constipation, unspecified; F32.9 Major depressive disorder, single episode, unspecified; R45.87 Impulsiveness; Z59.0 Homelessness; Z91.19 Patient's noncompliance with other medical treatment and regimen; Z79.899 Other long term (current) drug therapy
CPT/HCPCS: 83036; 84443; 87081; G0480

== ENCOUNTER 2019-05-16 20:56 | Emergency (ER) | payer OTHER ==
[~2019-05-16] VITALS: Ht 170.2 cm; Wt 81.8 kg
[~2019-05-16 20:56] MED LIST changes: -ARIP15TA2 PO; +ARIP882S IM
[2019-05-16 21:10] VITALS: BP 116/78
[2019-05-16] MEDS ORDERED: ARIP2 PO (21:13)
[2019-05-16] MEDS ORDERED: DIVA125T32 PO (21:13)
[2019-05-16 21:48] LABS: BASOPHILS % (AUTO) 1.1 % (0.0-2.0); EOSINOPHILS % (AUTO) 3.2 % (1.0-6.0); HEMATOCRIT 48.2 % (41-53); HEMOGLOBIN 15.8 g/dL (13.5-17.5); LYMPHOCYTES # (AUTO) 3.7 K/uL (1.0-4.8); MEAN CORPUSCULAR HEMOGLOBIN 29.5 pg (26.0-34.0); MEAN CORPUSCULAR HGB CONC 32.9 G/dL (31.0-37.0); MEAN CORPUSCULAR VOLUME 90 fL (80-100); MONOCYTES # (AUTO) 0.9 K/uL (0.1-1.0); MONOCYTES % (AUTO) 10.1 % (2.0-9.0); NEUTROPHILS # (AUTO) 4.2 K/uL (1.8-7.7); NEUTROPHILS % (AUTO) 45.6 % (40.0-70.0); PLATELET COUNT (AUTO) 220 K/uL (150-450); RED BLOOD CELL COUNT(AUTO) 5.36 MIL/uL (4.50-5.90); RED CELL DISTRIBUTION WIDTH 13.4 % (11.5-14.5)
[2019-05-16 21:58] LABS: ANION GAP 9 mmol/L (8-16); CARBON DIOXIDE 27 mmol/L (22-29); CHLORIDE 103 mmol/L (98-107); CREATININE 1.24 mg/dL (0.60-1.30); GLOMERULAR FILTR. RATE CALC > 60 mL/min (>60); GLUCOSE,RANDOM 85 mg/dL (70-110); POTASSIUM 3.3 mmol/L (3.5-5.1); SODIUM SERUM 139 mmol/L (136-145); UREA NITROGEN, BLOOD 16 mg/dL (7-18)
[2019-05-16 22:04] LABS: ALANINE AMINOTRANSFERASE 18 U/L (12-78); ALBUMIN 3.6 g/dL (3.4-5.0); ALKALINE PHOSPHATASE 70 U/L (46-116); ASPARTATE AMINOTRANSFERASE 15 U/L (15-37); BILIRUBIN,TOTAL 0.3 mg/dL (0.1-1.0); TOTAL PROTEIN, SERUM 7.1 g/dL (6.4-8.2)
== END 2019-05-16 23:45 | disposition left against medical advice (07) ==
LOC: EMS 20:57
DX: F20.9 Schizophrenia, unspecified (principal); Z53.21 Procedure and treatment not carried out due to patient leaving prior to being seen by health care provider
CPT/HCPCS: 36415; 80053; 85025; G0480

== ENCOUNTER 2020-01-12 08:06 | Inpatient (IN) | payer MEDICAID ==
[~2020-01-12] VITALS: Ht 170.2 cm; Wt 90.5 kg
[~2020-01-12 08:06] MED LIST changes: +ARIP2 PO; -ARIP882S IM; +DIVA125T32 PO
[2020-01-12 11:16] VITALS: BP 120/69
[2020-01-12] MEDS ORDERED: HALOPERIDOL 5 MG TABLET PO PRN (11:30)
[2020-01-12] MEDS ORDERED: DIVA-78 PO (11:34)
[2020-01-12 13:23] VITALS: BP 124/73
[2020-01-12 17:04] VITALS: BP 122/68
[2020-01-13 06:42] VITALS: BP 113/53
[2020-01-13 07:36] LABS: BASOPHILS % (AUTO) 1.2 % (0.0-2.0); EOSINOPHILS % (AUTO) 6.3 % (1.0-6.0); HEMATOCRIT 46.8 % (41-53); LYMPHOCYTES # (AUTO) 2.5 K/uL (1.0-4.8); LYMPHOCYTES % (AUTO) 42.8 % (22.0-44.0); MEAN CORPUSCULAR HEMOGLOBIN 30.5 pg (26.0-34.0); MEAN CORPUSCULAR HGB CONC 34.2 G/dL (31.0-37.0); MEAN CORPUSCULAR VOLUME 89 fL (80-100); MONOCYTES # (AUTO) 0.6 K/uL (0.1-1.0); NEUTROPHILS # (AUTO) 2.3 K/uL (1.8-7.7); NEUTROPHILS % (AUTO) 39.7 % (40.0-70.0); PLATELET COUNT (AUTO) 190 K/uL (150-450); RED BLOOD CELL COUNT(AUTO) 5.24 MIL/uL (4.50-5.90); RED CELL DISTRIBUTION WIDTH 13.6 % (11.5-14.5)
[2020-01-13 08:02] LABS: ALANINE AMINOTRANSFERASE 41 U/L (12-78); ALBUMIN 3.8 g/dL (3.4-5.0); ALKALINE PHOSPHATASE 54 U/L (46-116); ANION GAP 7 mmol/L (8-16); ASPARTATE AMINOTRANSFERASE 18 U/L (15-37); BILIRUBIN,TOTAL 0.3 mg/dL (0.1-1.0); CALCIUM, TOTAL 8.9 mg/dL (8.8-10.5); CARBON DIOXIDE 27 mmol/L (22-29); CHLORIDE 106 mmol/L (98-107); CREATININE 0.94 mg/dL (0.60-1.30); GLOMERULAR FILTR. RATE CALC > 60 mL/min (>60); GLUCOSE,RANDOM 91 mg/dL (70-110); POTASSIUM 4.4 mmol/L (3.5-5.1); SODIUM SERUM 140 mmol/L (136-145); UREA NITROGEN, BLOOD 15 mg/dL (7-18); VALPROIC ACID 4 mcg/mL (50-100)
[2020-01-13] MEDS: NICOTINE 14 MG/24 HOUR PATCH TD SCH (08:10)
[2020-01-13 08:24] VITALS: BP 121/75
[2020-01-13] MEDS: LORazepam 2 MG TABLET PO PRN (08:30)
[2020-01-13] MEDS ORDERED: LOPERAMIDE HCL 2 MG CAPSULE PO PRN (10:45)
[2020-01-13] MEDS ORDERED: PETROLATUM,WHITE 28 GM JELLY TP PRN (10:45)
[2020-01-13] MEDS ORDERED: MAG HYDROX/AL HYDROX/SIMETH ES 30 ML SUSPENSION UDCUP PO PRN (10:45)
[2020-01-13] MEDS ORDERED: DOCUSATE SODIUM 100 MG CAPSULE PO PRN (10:45)
[2020-01-13] MEDS ORDERED: IBUPROFEN 400 MG TABLET PO PRN (10:45)
[2020-01-13] MEDS ORDERED: GuaiFENesin/D-METHORPHAN [SUGAR-FREE] 200-20MG/10 ML SYRUP UDCUP PO PRN (10:45)
[2020-01-13] MEDS ORDERED: CloNIDine HCL 0.1 MG TABLET PO PRN (10:45)
[2020-01-13] MEDS ORDERED: ACETAMINOPHEN 325 MG TABLET PO PRN (10:45)
[2020-01-13] MEDS ORDERED: NICOTINE 14 MG/24 HOUR PATCH TD PRN (10:45)
[2020-01-13] MEDS ORDERED: ONDANSETRON HCL 4 MG TABLET PO PRN (10:45)
[2020-01-13] MEDS ORDERED: MAGNESIUM HYDROXIDE SUSPENSION 30 ML UDCUP PO PRN (10:45)
[2020-01-13] MEDS ORDERED: ALBUTEROL SULFATE HFA 90 MCG/PUFF 8 GM INHALER IH PRN (10:45)
[2020-01-13 16:04] VITALS: BP 142/90
[2020-01-13] MEDS: RisperiDONE 2 MG TABLET PO SCH (17:45)
[2020-01-13] MEDS: DIVALPROEX SODIUM 500 MG DR TABLET PO SCH (17:45)
[2020-01-13] MEDS: ZOLPIDEM TARTRATE 10 MG TABLET PO PRN (20:05)
[2020-01-14 05:33] VITALS: BP 132/88
[2020-01-14 08:05] VITALS: BP 133/97
[2020-01-14] MEDS: RisperiDONE 2 MG TABLET PO SCH ×2 (08:29→17:37)
[2020-01-14] MEDS: DIVALPROEX SODIUM 500 MG DR TABLET PO SCH ×2 (08:29→17:37)
[2020-01-14] MEDS: NICOTINE 14 MG/24 HOUR PATCH TD SCH (08:29)
[2020-01-14] MEDS: LORazepam 2 MG TABLET PO PRN ×2 (10:57→18:40)
[2020-01-14 16:07] VITALS: BP 132/78
[2020-01-14] MEDS: ZOLPIDEM TARTRATE 10 MG TABLET PO PRN (21:04)
[2020-01-15 05:59] VITALS: BP 129/81
[2020-01-15] MEDS: DIVALPROEX SODIUM 500 MG DR TABLET PO SCH ×2 (08:28→16:51)
[2020-01-15] MEDS: RisperiDONE 2 MG TABLET PO SCH ×2 (08:28→16:51)
[2020-01-15 08:31] VITALS: BP 122/69
[2020-01-15] MEDS: NICOTINE 14 MG/24 HOUR PATCH TD SCH (11:46)
[2020-01-15 16:30] VITALS: BP 125/74
[2020-01-15] MEDS ORDERED: RISP2 PO (16:56)
== END 2020-01-15 18:00 | disposition home or self-care (01) | DRG 750 ==
LOC: B3A 11:50
PROVIDERS: ADMIT Psychiatry & Neurology Child & Adolescent Psychiatry; ATTEND Psychiatry & Neurology Child & Adolescent Psychiatry
DX: F25.9 Schizoaffective disorder, unspecified (principal); I95.9 Hypotension, unspecified; R45.851 Suicidal ideations; G40.909 Epilepsy, unspecified, not intractable, without status epilepticus; F41.9 Anxiety disorder, unspecified; K59.00 Constipation, unspecified

== ENCOUNTER 2020-06-07 06:50 | Emergency (ER) | payer MEDICAID, OTHER ==
[~2020-06-07] VITALS: Ht 175.3 cm; Wt 84.1 kg
[~2020-06-07 06:50] MED LIST changes: -ARIP2 PO; +DIVA-112 PO; -DIVA125T32 PO; +RISP2TAB23 PO
[2020-06-07 06:51] VITALS: BP 136/83
== END 2020-06-07 08:29 | disposition home or self-care (01) ==
LOC: EMS 06:50
DX: T16.1XXA Foreign body in right ear, initial encounter (principal); F20.9 Schizophrenia, unspecified; F17.210 Nicotine dependence, cigarettes, uncomplicated; F12.90 Cannabis use, unspecified, uncomplicated; W45.8XXA Other foreign body or object entering through skin, initial encounter; Y93.89 Activity, other specified; Y92.89 Other specified places as the place of occurrence of the external cause; Y99.8 Other external cause status
CPT/HCPCS: Z7502

== ENCOUNTER 2020-06-23 14:09 | Emergency (ER) | payer OTHER ==
[~2020-06-23] VITALS: Ht 170.2 cm; Wt 84.1 kg
[2020-06-23 14:32] VITALS: BP 122/69
== END 2020-06-23 17:10 | disposition left against medical advice (07) ==
LOC: EMS 14:15
DX: F41.9 Anxiety disorder, unspecified (principal); Z53.21 Procedure and treatment not carried out due to patient leaving prior to being seen by health care provider

== ENCOUNTER 2020-10-23 15:56 | Emergency (ER) | payer OTHER ==
[~2020-10-23] VITALS: Ht 170.2 cm; Wt 86.4 kg
[~2020-10-23 15:56] MED LIST changes: -RISP2TAB23 PO; +RISP2TAB45 PO
[2020-10-23 18:45] VITALS: BP 122/81
== END 2020-10-23 18:54 | disposition home or self-care (01) ==
LOC: EMS 15:56
DX: K62.89 Other specified diseases of anus and rectum (principal); F20.9 Schizophrenia, unspecified; F17.210 Nicotine dependence, cigarettes, uncomplicated; F12.90 Cannabis use, unspecified, uncomplicated
CPT/HCPCS: 87045; 87177; 99283

== ENCOUNTER 2020-10-28 08:15 | Emergency (ER) | payer OTHER ==
[~2020-10-28] VITALS: Ht 170.2 cm; Wt 86.4 kg
[2020-10-28 08:19] VITALS: BP 139/82
== END 2020-10-28 08:47 | disposition home or self-care (01) ==
LOC: EMS 08:18
DX: K62.89 Other specified diseases of anus and rectum (principal); F20.9 Schizophrenia, unspecified; F17.210 Nicotine dependence, cigarettes, uncomplicated; F12.90 Cannabis use, unspecified, uncomplicated
CPT/HCPCS: 99281; Z7502

== ENCOUNTER 2021-06-04 20:55 | Inpatient (IN) | payer MEDICAID, OTHER ==
[~2021-06-04] VITALS: Ht 170.2 cm; Wt 90.3 kg
[2021-06-04] MEDS ORDERED: ACETAMINOPHEN 500 MG TABLET PO ONE (21:45)
[2021-06-04 22:00] LABS: BASOPHILS % (AUTO) 0.8 % (0.0-2.0); EOSINOPHILS % (AUTO) 3.7 % (1.0-6.0); HEMATOCRIT 48.3 % (41-53); HEMOGLOBIN 16.3 g/dL (13.5-17.5); LYMPHOCYTES # (AUTO) 2.8 K/uL (1.0-4.8); LYMPHOCYTES % (AUTO) 31.4 % (22.0-44.0); MEAN CORPUSCULAR HEMOGLOBIN 29.6 pg (26.0-34.0); MEAN CORPUSCULAR HGB CONC 33.7 G/dL (31.0-37.0); MEAN CORPUSCULAR VOLUME 88 fL (80-100); MONOCYTES # (AUTO) 0.7 K/uL (0.1-1.0); MONOCYTES % (AUTO) 8.2 % (2.0-9.0); NEUTROPHILS % (AUTO) 55.9 % (40.0-70.0); PLATELET COUNT (AUTO) 233 K/uL (150-450); RED CELL DISTRIBUTION WIDTH 13.4 % (11.5-14.5)
[2021-06-04 22:15] LABS: ANION GAP 3 mmol/L (8-16); CALCIUM, TOTAL 8.9 mg/dL (8.8-10.5); CARBON DIOXIDE 27 mmol/L (22-29); CHLORIDE 107 mmol/L (98-107); CREATININE 1.07 mg/dL (0.60-1.30); GLOMERULAR FILTR. RATE CALC > 60 mL/min (>60); GLUCOSE,RANDOM 92 mg/dL (70-110); POTASSIUM 3.8 mmol/L (3.5-5.1); SODIUM SERUM 137 mmol/L (136-145)
[2021-06-04 22:21] LABS: ALANINE AMINOTRANSFERASE 66 U/L (12-78); ALBUMIN 3.7 g/dL (3.4-5.0); ALKALINE PHOSPHATASE 65 U/L (46-116); ASPARTATE AMINOTRANSFERASE 29 U/L (15-37); BILIRUBIN,TOTAL 0.3 mg/dL (0.1-1.0); TOTAL PROTEIN, SERUM 7.3 g/dL (6.4-8.2)
[2021-06-04 22:27] LABS: UREA NITROGEN, BLOOD 12 mg/dL (7-18)
[2021-06-04 22:33] LABS: AMPHET/METH SCREEN,URINE NEGATIVE (NEGATIVE); BARBITURATE SCREEN, URINE NEGATIVE (NEGATIVE); BENZODIAZEPINES SCREEN,URINE NEGATIVE (NEGATIVE); CANNABINOID SCREEN,URINE POSITIVE (NEGATIVE); COCAINE SCREEN,URINE NEGATIVE (NEGATIVE); METHADONE SCREEN, URINE NEGATIVE (NEGATIVE); OPIATE SCREEN,URINE NEGATIVE (NEGATIVE)
[2021-06-04 22:44] LABS: PHENCYCLIDINE SCREEN,URINE NEGATIVE (NEGATIVE)
[2021-06-04] MEDS ORDERED: LORazepam 2 MG TABLET PO PRN (23:30)
[2021-06-04] MEDS ORDERED: HALOPERIDOL 5 MG TABLET PO PRN (23:30)
[2021-06-04] MEDS ORDERED: ZOLPIDEM TARTRATE 10 MG TABLET PO PRN (23:30)
[2021-06-04 23:42] LABS: COVID AG,FIA SOURCE NASOPHARYNGEAL
[2021-06-05 01:28] VITALS: BP 133/99
[2021-06-05] MEDS ORDERED: INFLUENZA VIRUS VACCINE QVS 2021-22 (6MO+)/PF 60 MCG/0.5 ML SYRINGE IM. ONE (03:30)
[2021-06-05 07:18] LABS: CHOL/HDL RATIO 4.3 (4.2-7.3); CHOLESTEROL 180 mg/dL (131-200); HDL CHOLESTEROL 42 mg/dL (40-60); LDL CHOL (CALC.) 115 mg/dL (0-130); TRIGLYCERIDES 116 mg/dL (15-150)
[2021-06-05 07:23] LABS: VALPROIC ACID < 3 mcg/mL (50-100)
[2021-06-05] MEDS ORDERED: LOPERAMIDE HCL 2 MG CAPSULE PO PRN (09:45)
[2021-06-05] MEDS ORDERED: ONDANSETRON HCL 4 MG TABLET PO PRN (09:45)
[2021-06-05] MEDS ORDERED: PETROLATUM,WHITE 28 GM JELLY TP PRN (09:45)
[2021-06-05] MEDS ORDERED: MAG HYDROX/AL HYDROX/SIMETH ES 30 ML SUSPENSION UDCUP PO PRN (09:45)
[2021-06-05] MEDS ORDERED: ACETAMINOPHEN 325 MG TABLET PO PRN (09:45)
[2021-06-05] MEDS ORDERED: DOCUSATE SODIUM 100 MG CAPSULE PO PRN (09:45)
[2021-06-05] MEDS ORDERED: IBUPROFEN 600 MG TABLET PO PRN (09:45)
[2021-06-05] MEDS ORDERED: OMEPRAZOLE 20 MG CAPSULE PO PRN (09:45)
[2021-06-05] MEDS ORDERED: BENZOCAINE/MENTHOL LOZENGE PO PRN (09:45)
[2021-06-05] MEDS ORDERED: CloNIDine HCL 0.1 MG TABLET PO PRN (09:45)
[2021-06-05] MEDS ORDERED: BACITRACIN 28 GM OINTMENT TP PRN (09:45)
[2021-06-05] MEDS ORDERED: ALBUTEROL SULFATE HFA 90 MCG/PUFF 8 GM INHALER IH PRN (09:45)
[2021-06-05] MEDS ORDERED: MAGNESIUM HYDROXIDE SUSPENSION 30 ML UDCUP PO PRN (09:45)
[2021-06-05 09:53] VITALS: BP 117/69
[2021-06-05 16:00] VITALS: BP 130/82
[2021-06-05] MEDS: DIVALPROEX SODIUM 500 MG DR TABLET PO SCH (16:26)
[2021-06-05] MEDS: RisperiDONE 2 MG TABLET PO SCH (16:26)
[2021-06-06] MEDS: RisperiDONE 2 MG TABLET PO SCH ×2 (08:28→16:07)
[2021-06-06] MEDS: DIVALPROEX SODIUM 500 MG DR TABLET PO SCH ×2 (08:28→16:07)
[2021-06-06 08:38] VITALS: BP 120/72
[2021-06-06 16:00] VITALS: BP 100/65
[2021-06-07] MEDS: DIVALPROEX SODIUM 500 MG DR TABLET PO SCH ×2 (10:06→16:13)
[2021-06-07] MEDS: RisperiDONE 2 MG TABLET PO SCH ×2 (10:06→16:13)
[2021-06-07 10:15] VITALS: BP 110/75
[2021-06-07 16:20] VITALS: BP 104/67
[2021-06-08 01:00] VITALS: BP 135/75
[2021-06-08 08:31] VITALS: BP 136/87
[2021-06-08] MEDS: DIVALPROEX SODIUM 500 MG DR TABLET PO SCH (08:55)
[2021-06-08] MEDS: RisperiDONE 2 MG TABLET PO SCH (08:55)
== END 2021-06-08 13:45 | disposition home or self-care (01) | DRG 750 ==
LOC: EMS 20:58 → 3EI 06-05 00:30
PROVIDERS: ADMIT Psychiatry & Neurology Psychiatry; ATTEND Psychiatry & Neurology Psychiatry
DX: F25.9 Schizoaffective disorder, unspecified (principal); G40.909 Epilepsy, unspecified, not intractable, without status epilepticus; R45.851 Suicidal ideations; F32.9 Major depressive disorder, single episode, unspecified; F41.9 Anxiety disorder, unspecified; G47.00 Insomnia, unspecified; K59.00 Constipation, unspecified; Z87.891 Personal history of nicotine dependence; Z20.822 Contact with and (suspected) exposure to COVID-19; Z79.899 Other long term (current) drug therapy
CPT/HCPCS: 80053; 80061; 80164; 85025; 99285; G0480

== ENCOUNTER 2021-10-03 22:50 | Emergency (ER) | payer MEDICAID, OTHER ==
[~2021-10-03] VITALS: Ht 172.7 cm; Wt 90.9 kg
[2021-10-04 00:20] LABS: EOSINOPHILS % (AUTO) 4.6 % (1.0-6.0); HEMATOCRIT 49.5 % (41-53); HEMOGLOBIN 17.3 g/dL (13.5-17.5); LYMPHOCYTES # (AUTO) 3.6 K/uL (1.0-4.8); LYMPHOCYTES % (AUTO) 38.6 % (22.0-44.0); MEAN CORPUSCULAR HEMOGLOBIN 30.1 pg (26.0-34.0); MEAN CORPUSCULAR VOLUME 86 fL (80-100); MONOCYTES # (AUTO) 0.9 K/uL (0.1-1.0); MONOCYTES % (AUTO) 9.6 % (2.0-9.0); NEUTROPHILS # (AUTO) 4.3 K/uL (1.8-7.7); NEUTROPHILS % (AUTO) 46.2 % (40.0-70.0); PLATELET COUNT (AUTO) 264 K/uL (150-450); RED BLOOD CELL COUNT(AUTO) 5.77 MIL/uL (4.50-5.90)
[2021-10-04 00:38] LABS: ANION GAP 7 mmol/L (8-16); CARBON DIOXIDE 30 mmol/L (22-29); CHLORIDE 105 mmol/L (98-107); CREATININE 0.96 mg/dL (0.60-1.30); GLOMERULAR FILTR. RATE CALC > 60 mL/min (>60); GLUCOSE,RANDOM 104 mg/dL (70-110); POTASSIUM 4.3 mmol/L (3.5-5.1); SODIUM SERUM 142 mmol/L (136-145); UREA NITROGEN, BLOOD 11 mg/dL (7-18)
[2021-10-04 00:44] LABS: ALANINE AMINOTRANSFERASE 66 U/L (12-78); ALBUMIN 3.9 g/dL (3.4-5.0); ALKALINE PHOSPHATASE 72 U/L (46-116); ASPARTATE AMINOTRANSFERASE 26 U/L (15-37); BILIRUBIN,TOTAL 0.3 mg/dL (0.1-1.0); TOTAL PROTEIN, SERUM 7.8 g/dL (6.4-8.2)
[2021-10-04 00:47] LABS: VALPROIC ACID < 3 mcg/mL (50-100)
[2021-10-04 02:59] VITALS: BP 133/78
== END 2021-10-04 03:25 | disposition home or self-care (01) ==
LOC: EMS 22:53
DX: F25.9 Schizoaffective disorder, unspecified (principal); F12.90 Cannabis use, unspecified, uncomplicated; F17.210 Nicotine dependence, cigarettes, uncomplicated; Z79.899 Other long term (current) drug therapy
CPT/HCPCS: 36415; 80053; 80164; 85025; 99284; G0480

== ENCOUNTER 2021-10-05 10:03 | Emergency (ER) | payer OTHER ==
[~2021-10-05] VITALS: Ht 170.2 cm; Wt 86.4 kg
[2021-10-05 10:10] VITALS: BP 139/66
== END 2021-10-05 11:08 | disposition home or self-care (01) ==
LOC: EMS 10:09
DX: F20.9 Schizophrenia, unspecified (principal); F32.9 Major depressive disorder, single episode, unspecified; F17.210 Nicotine dependence, cigarettes, uncomplicated
CPT/HCPCS: 99284; Z7502

== ENCOUNTER 2022-04-13 00:12 | Emergency (ER) | payer OTHER ==
[~2022-04-13] VITALS: Ht 170.2 cm; Wt 90.9 kg
[2022-04-13 00:17] VITALS: BP 140/78
[2022-04-13 01:32] LABS: BASOPHILS % (AUTO) 0.9 % (0.0-2.0); EOSINOPHILS % (AUTO) 5.6 % (1.0-6.0); HEMATOCRIT 46.5 % (41-53); HEMOGLOBIN 15.9 g/dL (13.5-17.5); LYMPHOCYTES # (AUTO) 3.1 K/uL (1.0-4.8); LYMPHOCYTES % (AUTO) 33.2 % (22.0-44.0); MEAN CORPUSCULAR HEMOGLOBIN 29.7 pg (26.0-34.0); MEAN CORPUSCULAR HGB CONC 34.1 G/dL (31.0-37.0); MEAN CORPUSCULAR VOLUME 87 fL (80-100); MONOCYTES # (AUTO) 0.9 K/uL (0.1-1.0); NEUTROPHILS # (AUTO) 4.7 K/uL (1.8-7.7); NEUTROPHILS % (AUTO) 50.3 % (40.0-70.0); PLATELET COUNT (AUTO) 230 K/uL (150-450); RED BLOOD CELL COUNT(AUTO) 5.34 MIL/uL (4.50-5.90); RED CELL DISTRIBUTION WIDTH 14.1 % (11.5-14.5)
[2022-04-13 01:41] LABS: ANION GAP 9 mmol/L (8-16); CARBON DIOXIDE 27 mmol/L (22-29); CHLORIDE 104 mmol/L (98-107); CREATININE 0.86 mg/dL (0.60-1.30); GLUCOSE,RANDOM 95 mg/dL (70-110); POTASSIUM 4.2 mmol/L (3.5-5.1); SODIUM SERUM 140 mmol/L (136-145); UREA NITROGEN, BLOOD 12 mg/dL (7-18)
[2022-04-13 01:42] LABS: GLOMERULAR FILTR. RATE CALC > 60 mL/min (>60)
[2022-04-13] MEDS ORDERED: RisperiDONE 1 MG TABLET PO ONE (01:45)
[2022-04-13 01:49] LABS: ALANINE AMINOTRANSFERASE 51 U/L (12-78); ALBUMIN 3.4 g/dL (3.4-5.0); ALKALINE PHOSPHATASE 77 U/L (46-116); ASPARTATE AMINOTRANSFERASE 24 U/L (15-37); BILIRUBIN,TOTAL 0.2 mg/dL (0.1-1.0)
[2022-04-13 02:05] LABS: COVID AG,FIA SOURCE NASAL SWAB
[2022-04-13 02:49] LABS: AMPHET/METH SCREEN,URINE NEGATIVE (NEGATIVE); BARBITURATE SCREEN, URINE NEGATIVE (NEGATIVE); BENZODIAZEPINES SCREEN,URINE NEGATIVE (NEGATIVE); CANNABINOID SCREEN,URINE NEGATIVE (NEGATIVE); COCAINE SCREEN,URINE NEGATIVE (NEGATIVE); METHADONE SCREEN, URINE NEGATIVE (NEGATIVE); OPIATE SCREEN,URINE NEGATIVE (NEGATIVE)
[2022-04-13 03:14] LABS: PHENCYCLIDINE SCREEN,URINE NEGATIVE (NEGATIVE)
== END 2022-04-13 02:54 | disposition home or self-care (01) ==
LOC: EMS 00:14
DX: F20.9 Schizophrenia, unspecified (principal); Z20.822 Contact with and (suspected) exposure to COVID-19; F31.9 Bipolar disorder, unspecified; F10.20 Alcohol dependence, uncomplicated; F17.210 Nicotine dependence, cigarettes, uncomplicated; G40.909 Epilepsy, unspecified, not intractable, without status epilepticus
CPT/HCPCS: 99284; 87426; 80053; 85025; 36415; 80307; G0480

== ENCOUNTER 2022-07-04 04:47 | Inpatient (IN) | payer MEDICAID, OTHER ==
[~2022-07-04] VITALS: Ht 172.7 cm; Wt 88.4 kg
[2022-07-04] MEDS ORDERED: HALOPERIDOL 5 MG TABLET PO ONE (05:15)
[2022-07-04] MEDS ORDERED: DiphenhydrAMINE HCL 25 MG CAPSULE PO ONE (05:15)
[2022-07-04] MEDS ORDERED: LORazepam 1 MG TABLET PO ONE (05:15)
[2022-07-04 05:24] LABS: COVID AG,FIA SOURCE NASOPHARYNGEAL
[2022-07-04 05:27] LABS: EOSINOPHILS % (AUTO) 4.4 % (1.0-6.0); HEMATOCRIT 49.6 % (41-53); HEMOGLOBIN 17.1 g/dL (13.5-17.5); LYMPHOCYTES % (AUTO) 37.9 % (22.0-44.0); MEAN CORPUSCULAR HEMOGLOBIN 29.7 pg (26.0-34.0); MEAN CORPUSCULAR HGB CONC 34.4 G/dL (31.0-37.0); MEAN CORPUSCULAR VOLUME 86 fL (80-100); MONOCYTES # (AUTO) 0.7 K/uL (0.1-1.0); MONOCYTES % (AUTO) 8.3 % (2.0-9.0); NEUTROPHILS # (AUTO) 3.8 K/uL (1.8-7.7); NEUTROPHILS % (AUTO) 48.4 % (40.0-70.0); PLATELET COUNT (AUTO) 242 K/uL (150-450); RED BLOOD CELL COUNT(AUTO) 5.75 MIL/uL (4.50-5.90); RED CELL DISTRIBUTION WIDTH 13.2 % (11.5-14.5)
[2022-07-04 05:33] LABS: AMPHET/METH SCREEN,URINE NEGATIVE (NEGATIVE); BARBITURATE SCREEN, URINE NEGATIVE (NEGATIVE); BENZODIAZEPINES SCREEN,URINE NEGATIVE (NEGATIVE); CANNABINOID SCREEN,URINE NEGATIVE (NEGATIVE); COCAINE SCREEN,URINE NEGATIVE (NEGATIVE); METHADONE SCREEN, URINE NEGATIVE (NEGATIVE); OPIATE SCREEN,URINE NEGATIVE (NEGATIVE); PHENCYCLIDINE SCREEN,URINE NEGATIVE (NEGATIVE)
[2022-07-04 05:39] LABS: ANION GAP 11 mmol/L (8-16); CALCIUM, TOTAL 9.4 mg/dL (8.8-10.5); CARBON DIOXIDE 25 mmol/L (22-29); CHLORIDE 104 mmol/L (98-107); CREATININE 0.83 mg/dL (0.60-1.30); GLOMERULAR FILTR. RATE CALC > 60 mL/min (>60); GLUCOSE,RANDOM 123 mg/dL (70-110); SODIUM SERUM 140 mmol/L (136-145); UREA NITROGEN, BLOOD 11 mg/dL (7-18)
[2022-07-04 05:44] LABS: ALANINE AMINOTRANSFERASE 73 U/L (12-78); ALBUMIN 3.7 g/dL (3.4-5.0); ALKALINE PHOSPHATASE 74 U/L (46-116); ASPARTATE AMINOTRANSFERASE 28 U/L (15-37); BILIRUBIN,TOTAL 0.3 mg/dL (0.1-1.0); TOTAL PROTEIN, SERUM 7.7 g/dL (6.4-8.2)
[2022-07-04] MEDS ORDERED: LORazepam 2 MG TABLET PO PRN (06:30)
[2022-07-04] MEDS ORDERED: HALOPERIDOL 5 MG TABLET PO PRN (06:30)
[2022-07-04] MEDS ORDERED: ZOLPIDEM TARTRATE 10 MG TABLET PO PRN (06:30)
[2022-07-04 07:50] LABS: APPEARANCE,URINE CLEAR (CLEAR); BILIRUBIN,URINE NEGATIVE (NEGATIVE); GLUCOSE, URINE (UA) NEGATIVE (NEGATIVE); KETONES,URINE NEGATIVE (NEGATIVE); LEUKOCYTE ESTERASE ,URINE NEGATIVE (NEGATIVE); NITRATE,URINE NEGATIVE (NEGATIVE); OCCULT BLOOD,URINE NEGATIVE (NEGATIVE); PH,URINE 5.5 (5.0-8.0); PROTEIN,URINE NEGATIVE (NEGATIVE); SPECIFIC GRAVITIY, URINE 1.007 (1.003-1.030); UROBILINOGEN,URINE <=1.0 mg/dL (<=1.0)
[2022-07-04 21:44] VITALS: BP 131/80
[2022-07-04] MEDS ORDERED: INFLUENZA VIRUS VACCINE QVS 2022-23 (6MO+)/PF 60 MCG/0.5 ML SYRINGE IM. ONE (22:45)
[2022-07-05] MEDS ORDERED: PETROLATUM,WHITE 28 GM JELLY TP PRN (06:30)
[2022-07-05] MEDS ORDERED: CloNIDine HCL 0.1 MG TABLET PO PRN (06:30)
[2022-07-05] MEDS ORDERED: IBUPROFEN 600 MG TABLET PO PRN (06:30)
[2022-07-05] MEDS ORDERED: BENZOCAINE/MENTHOL LOZENGE PO PRN (06:30)
[2022-07-05] MEDS ORDERED: ALBUTEROL SULFATE HFA 90 MCG/PUFF 8 GM INHALER IH PRN (06:30)
[2022-07-05] MEDS ORDERED: DOCUSATE SODIUM 100 MG CAPSULE PO PRN (06:30)
[2022-07-05] MEDS ORDERED: ONDANSETRON HCL 4 MG TABLET PO PRN (06:30)
[2022-07-05] MEDS ORDERED: BACITRACIN 28 GM OINTMENT TP PRN (06:30)
[2022-07-05] MEDS ORDERED: MAG HYDROX/AL HYDROX/SIMETH ES 30 ML SUSPENSION UDCUP PO PRN (06:30)
[2022-07-05] MEDS ORDERED: LOPERAMIDE HCL 2 MG CAPSULE PO PRN (06:30)
[2022-07-05] MEDS ORDERED: ACETAMINOPHEN 325 MG TABLET PO PRN (06:30)
[2022-07-05] MEDS ORDERED: MAGNESIUM HYDROXIDE SUSPENSION 30 ML UDCUP PO PRN (06:30)
[2022-07-05] MEDS ORDERED: OMEPRAZOLE 20 MG CAPSULE PO PRN (06:30)
[2022-07-05 08:00] VITALS: BP 107/54
[2022-07-05 16:00] VITALS: BP 144/84
[2022-07-05] MEDS: RisperiDONE 3 MG TABLET PO SCH (17:15)
[2022-07-05] MEDS: DIVALPROEX SODIUM 500 MG DR TABLET PO SCH (17:15)
[2022-07-06 07:47] LABS: HEMOGLOBIN A1C 5.7 % (3.8-5.6)
[2022-07-06 08:01] LABS: CHOL/HDL RATIO 4.7 (4.2-7.3); THYROID STIMULATING HORMONE 1.04 uIU/mL (0.36-3.74)
[2022-07-06] MEDS: DIVALPROEX SODIUM 500 MG DR TABLET PO SCH ×2 (09:00→17:24)
[2022-07-06] MEDS: RisperiDONE 3 MG TABLET PO SCH ×2 (09:00→17:24)
[2022-07-06 16:05] VITALS: BP 128/81
[2022-07-07] MEDS: DIVALPROEX SODIUM 500 MG DR TABLET PO SCH ×2 (09:00→17:59)
[2022-07-07] MEDS: RisperiDONE 3 MG TABLET PO SCH ×2 (09:00→17:59)
[2022-07-07 10:47] VITALS: BP 119/77
[2022-07-07 16:23] VITALS: BP 133/86
[2022-07-08 08:00] VITALS: BP 132/72
[2022-07-08] MEDS: DIVALPROEX SODIUM 500 MG DR TABLET PO SCH ×2 (08:31→16:13)
[2022-07-08] MEDS: RisperiDONE 3 MG TABLET PO SCH ×2 (08:32→16:13)
[2022-07-08 16:00] VITALS: BP 114/77
[2022-07-09 08:10] VITALS: BP 118/83
[2022-07-09] MEDS: RisperiDONE 3 MG TABLET PO SCH ×2 (09:02→16:13)
[2022-07-09] MEDS: DIVALPROEX SODIUM 500 MG DR TABLET PO SCH ×2 (09:02→16:13)
[2022-07-09 16:17] VITALS: BP 142/85
[2022-07-10 06:48] LABS: COVID AG,FIA SOURCE NASAL SWAB
[2022-07-10 08:25] VITALS: BP 115/73
[2022-07-10] MEDS: DIVALPROEX SODIUM 500 MG DR TABLET PO SCH ×2 (08:47→16:44)
[2022-07-10] MEDS: RisperiDONE 3 MG TABLET PO SCH ×2 (08:47→16:44)
[2022-07-10] MEDS ORDERED: RISP3TAB63 PO (13:22)
[2022-07-10 16:03] VITALS: BP 113/78
== END 2022-07-10 17:34 | disposition home or self-care (01) | DRG 750 ==
LOC: EMS 04:50 → 3EI 14:54
PROVIDERS: ADMIT Psychiatry & Neurology Psychiatry; ATTEND Psychiatry & Neurology Psychiatry
DX: F25.9 Schizoaffective disorder, unspecified (principal); G40.909 Epilepsy, unspecified, not intractable, without status epilepticus; F32.A Depression, unspecified; F41.9 Anxiety disorder, unspecified; G47.00 Insomnia, unspecified; I10 Essential (primary) hypertension; Z20.822 Contact with and (suspected) exposure to COVID-19; K59.00 Constipation, unspecified; Z87.891 Personal history of nicotine dependence; Z91.14 Patient's other noncompliance with medication regimen; Z79.899 Other long term (current) drug therapy
CPT/HCPCS: 80053; 80061; 80164; 81003; 83036; 84443; 85025; 99285; G0480

== ENCOUNTER 2022-08-03 05:48 | Emergency (ER) | payer MEDICAID, OTHER ==
[~2022-08-03] VITALS: Ht 171.4 cm; Wt 90.9 kg
[~2022-08-03 05:48] MED LIST changes: -DIVA-112 PO; -RISP2TAB45 PO; +RISP3TAB63 PO
[2022-08-03 05:50] VITALS: BP 132/72
== END 2022-08-03 11:35 | disposition left against medical advice (07) ==
LOC: EMS 05:50
DX: F32.A Depression, unspecified (principal); F41.9 Anxiety disorder, unspecified; Z53.21 Procedure and treatment not carried out due to patient leaving prior to being seen by health care provider

== ENCOUNTER 2022-08-04 07:16 | Inpatient (IN) | payer MEDICAID, OTHER ==
[~2022-08-04] VITALS: Ht 170.2 cm; Wt 86.7 kg
[2022-08-04] MEDS ORDERED: ZOLPIDEM TARTRATE 10 MG TABLET PO PRN (09:00)
[2022-08-04] MEDS ORDERED: LORazepam 2 MG TABLET PO PRN (09:00)
[2022-08-04] MEDS ORDERED: HALOPERIDOL 5 MG TABLET PO PRN (09:00)
[2022-08-04 09:05] LABS: EOSINOPHILS % (AUTO) 5.1 % (1.0-6.0); HEMATOCRIT 46.1 % (41-53); HEMOGLOBIN 15.9 g/dL (13.5-17.5); LYMPHOCYTES # (AUTO) 1.7 K/uL (1.0-4.8); MEAN CORPUSCULAR HEMOGLOBIN 29.9 pg (26.0-34.0); MEAN CORPUSCULAR HGB CONC 34.5 G/dL (31.0-37.0); MEAN CORPUSCULAR VOLUME 87 fL (80-100); MONOCYTES # (AUTO) 0.9 K/uL (0.1-1.0); MONOCYTES % (AUTO) 12.5 % (2.0-9.0); NEUTROPHILS # (AUTO) 3.9 K/uL (1.8-7.7); NEUTROPHILS % (AUTO) 56.4 % (40.0-70.0); PLATELET COUNT (AUTO) 226 K/uL (150-450); RED BLOOD CELL COUNT(AUTO) 5.32 MIL/uL (4.50-5.90)
[2022-08-04 09:12] LABS: ANION GAP 11 mmol/L (8-16); CARBON DIOXIDE 27 mmol/L (22-29); CHLORIDE 100 mmol/L (98-107); CREATININE 1.02 mg/dL (0.60-1.30); GLOMERULAR FILTR. RATE CALC > 60 mL/min (>60); GLUCOSE,RANDOM 95 mg/dL (70-110); POTASSIUM 4.5 mmol/L (3.5-5.1); SODIUM SERUM 138 mmol/L (136-145); UREA NITROGEN, BLOOD 16 mg/dL (7-18)
[2022-08-04 09:19] LABS: ALANINE AMINOTRANSFERASE 71 U/L (12-78); ALBUMIN 3.7 g/dL (3.4-5.0); ALKALINE PHOSPHATASE 69 U/L (46-116); ASPARTATE AMINOTRANSFERASE 40 U/L (15-37); BILIRUBIN,TOTAL 0.6 mg/dL (0.1-1.0); TOTAL PROTEIN, SERUM 7.7 g/dL (6.4-8.2)
[2022-08-04 11:00] LABS: COVID AG,FIA SOURCE NASAL SWAB
[2022-08-04 12:31] LABS: APPEARANCE,URINE CLEAR (CLEAR); BILIRUBIN,URINE NEGATIVE (NEGATIVE); GLUCOSE, URINE (UA) NEGATIVE (NEGATIVE); KETONES,URINE 40-60 mg/dL (NEGATIVE); LEUKOCYTE ESTERASE ,URINE NEGATIVE (NEGATIVE); NITRATE,URINE NEGATIVE (NEGATIVE); OCCULT BLOOD,URINE NEGATIVE (NEGATIVE); PROTEIN,URINE TRACE mg/dL (NEGATIVE)
[2022-08-04 12:36] LABS: AMPHET/METH SCREEN,URINE NEGATIVE (NEGATIVE); BARBITURATE SCREEN, URINE NEGATIVE (NEGATIVE); BENZODIAZEPINES SCREEN,URINE NEGATIVE (NEGATIVE); CANNABINOID SCREEN,URINE POSITIVE (NEGATIVE); COCAINE SCREEN,URINE NEGATIVE (NEGATIVE); METHADONE SCREEN, URINE NEGATIVE (NEGATIVE); OPIATE SCREEN,URINE NEGATIVE (NEGATIVE); PHENCYCLIDINE SCREEN,URINE NEGATIVE (NEGATIVE)
[2022-08-04 14:40] VITALS: BP 129/59
[2022-08-04 20:20] VITALS: BP 124/62
[2022-08-04] MEDS ORDERED: BACITRACIN 28 GM OINTMENT TP PRN (20:45)
[2022-08-04] MEDS ORDERED: MAG HYDROX/AL HYDROX/SIMETH ES 30 ML SUSPENSION UDCUP PO PRN (20:45)
[2022-08-04] MEDS ORDERED: PETROLATUM,WHITE 28 GM JELLY TP PRN (20:45)
[2022-08-04] MEDS ORDERED: CloNIDine HCL 0.1 MG TABLET PO PRN (20:45)
[2022-08-04] MEDS ORDERED: ACETAMINOPHEN 325 MG TABLET PO PRN (20:45)
[2022-08-04] MEDS ORDERED: DOCUSATE SODIUM 100 MG CAPSULE PO PRN (20:45)
[2022-08-04] MEDS ORDERED: OMEPRAZOLE 20 MG CAPSULE PO PRN (20:45)
[2022-08-04] MEDS ORDERED: ONDANSETRON HCL 4 MG TABLET PO PRN (20:45)
[2022-08-04] MEDS ORDERED: LOPERAMIDE HCL 2 MG CAPSULE PO PRN (20:45)
[2022-08-04] MEDS ORDERED: ALBUTEROL SULFATE HFA 90 MCG/PUFF 8 GM INHALER IH PRN (20:45)
[2022-08-04] MEDS ORDERED: MAGNESIUM HYDROXIDE SUSPENSION 30 ML UDCUP PO PRN (20:45)
[2022-08-04] MEDS ORDERED: IBUPROFEN 600 MG TABLET PO PRN (20:45)
[2022-08-04] MEDS ORDERED: BENZOCAINE/MENTHOL LOZENGE PO PRN (20:45)
[2022-08-05] VITALS: BP 124/65
[2022-08-05 08:09] VITALS: BP 105/61
[2022-08-05] MEDS: LITHIUM CARBONATE 300 MG CAPSULE PO SCH (16:25)
[2022-08-05] MEDS: DIVALPROEX SODIUM 500 MG DR TABLET PO SCH (16:25)
[2022-08-05] MEDS: RisperiDONE 3 MG TABLET PO SCH (16:25)
[2022-08-05 20:30] VITALS: BP 122/69
[2022-08-06 05:06] LABS: HEPATITIS C AB (EIA) <0.1 s/co ratio (0.0-0.9); HIV 1-2 SCREEN 4TH GEN W/RFLX Non Reactive (Non Reactive)
[2022-08-06] MEDS: LITHIUM CARBONATE 300 MG CAPSULE PO SCH ×2 (08:58→17:01)
[2022-08-06] MEDS: RisperiDONE 3 MG TABLET PO SCH ×2 (08:58→17:01)
[2022-08-06] MEDS: DIVALPROEX SODIUM 500 MG DR TABLET PO SCH ×2 (08:58→17:01)
[2022-08-06 20:00] VITALS: BP 120/70
[2022-08-07] MEDS: RisperiDONE 3 MG TABLET PO SCH ×2 (08:08→17:18)
[2022-08-07] MEDS: LITHIUM CARBONATE 300 MG CAPSULE PO SCH ×2 (08:08→17:18)
[2022-08-07] MEDS: DIVALPROEX SODIUM 500 MG DR TABLET PO SCH ×2 (08:08→17:18)
[2022-08-07 08:15] VITALS: BP 100/60
[2022-08-07] MEDS ORDERED: NICOTINE POLACRILEX 2 MG LOZENGE PO PRN (16:00)
[2022-08-07 20:00] VITALS: BP 114/77
[2022-08-08 08:12] VITALS: BP 121/67
[2022-08-08] MEDS: LITHIUM CARBONATE 300 MG CAPSULE PO SCH ×2 (08:31→16:16)
[2022-08-08] MEDS: RisperiDONE 3 MG TABLET PO SCH ×2 (08:31→16:16)
[2022-08-08] MEDS: DIVALPROEX SODIUM 500 MG DR TABLET PO SCH ×2 (08:31→16:16)
[2022-08-08 20:38] VITALS: BP 104/63
[2022-08-09 08:11] LABS: GLUCOMETER DEV NAME(LOC) POC.BV
[2022-08-09 08:39] VITALS: BP 117/78
[2022-08-09] MEDS: DIVALPROEX SODIUM 500 MG DR TABLET PO SCH ×2 (10:13→16:49)
[2022-08-09] MEDS: LITHIUM CARBONATE 300 MG CAPSULE PO SCH ×2 (10:13→16:49)
[2022-08-09] MEDS: RisperiDONE 3 MG TABLET PO SCH ×2 (10:13→16:49)
[2022-08-09 20:23] VITALS: BP 100/60
[2022-08-10 07:31] LABS: LITHIUM 0.43 mmol/L (0.60-1.20)
[2022-08-10 09:24] VITALS: BP 130/73
[2022-08-10] MEDS: DIVALPROEX SODIUM 500 MG DR TABLET PO SCH ×2 (09:46→16:19)
[2022-08-10] MEDS: LITHIUM CARBONATE 300 MG CAPSULE PO SCH ×2 (09:46→16:19)
[2022-08-10] MEDS: RisperiDONE 3 MG TABLET PO SCH ×2 (09:46→16:19)
[2022-08-10 20:34] VITALS: BP 112/74
[2022-08-11] MEDS: LITHIUM CARBONATE 300 MG CAPSULE PO SCH ×2 (08:31→16:04)
[2022-08-11] MEDS: RisperiDONE 3 MG TABLET PO SCH ×2 (08:31→16:04)
[2022-08-11] MEDS: DIVALPROEX SODIUM 500 MG DR TABLET PO SCH ×2 (08:31→16:04)
[2022-08-11 09:09] VITALS: BP 126/59
[2022-08-11 21:02] VITALS: BP 107/63
[2022-08-12 08:21] VITALS: BP 112/69
[2022-08-12] MEDS ORDERED: DIVA-112 PO ×2 (08:21→16:36)
[2022-08-12] MEDS ORDERED: LITH300C3 PO ×2 (08:21→16:36)
[2022-08-12] MEDS: RisperiDONE 3 MG TABLET PO SCH ×2 (09:06→16:26)
[2022-08-12] MEDS: DIVALPROEX SODIUM 500 MG DR TABLET PO SCH ×2 (09:06→16:26)
[2022-08-12] MEDS: LITHIUM CARBONATE 300 MG CAPSULE PO SCH ×2 (09:06→16:26)
[2022-08-12] MEDS ORDERED: RISP3TAB63 PO (16:36)
== END 2022-08-12 17:40 | disposition home or self-care (01) | DRG 750 ==
LOC: EMS 07:22 → B3A 08:59 → B2S 08-08 18:36
PROVIDERS: ADMIT Psychiatry & Neurology Psychiatry; ATTEND Psychiatry & Neurology Psychiatry
DX: F20.9 Schizophrenia, unspecified (principal); F06.1 Catatonic disorder due to known physiological condition; F32.A Depression, unspecified; G40.909 Epilepsy, unspecified, not intractable, without status epilepticus; I10 Essential (primary) hypertension; F41.9 Anxiety disorder, unspecified; G47.00 Insomnia, unspecified; K59.00 Constipation, unspecified; E87.6 Hypokalemia; Z87.891 Personal history of nicotine dependence; Z91.14 Patient's other noncompliance with medication regimen
CPT/HCPCS: 80053; 80074; 80164; 80178; 81003; 85025; 86592; 87081; 87389; 99285; G0480; 36415-L1; 36415-TC; 80307-TC; Z7502; Z7610

== ENCOUNTER 2022-09-11 19:59 | Emergency (ER) | payer MEDICAID, OTHER ==
[~2022-09-11] VITALS: Ht 170.2 cm; Wt 100.0 kg
[~2022-09-11 19:59] MED LIST changes: +DIVA-112 PO; +LITH300C3 PO
[2022-09-11 23:26] LABS: BASOPHILS % (AUTO) 1.5 % (0.0-2.0); EOSINOPHILS % (AUTO) 7.1 % (1.0-6.0); HEMATOCRIT 44.2 % (41-53); LYMPHOCYTES # (AUTO) 3.1 K/uL (1.0-4.8); LYMPHOCYTES % (AUTO) 33.8 % (22.0-44.0); MEAN CORPUSCULAR HEMOGLOBIN 30.5 pg (26.0-34.0); MEAN CORPUSCULAR VOLUME 90 fL (80-100); MONOCYTES # (AUTO) 1.2 K/uL (0.1-1.0); MONOCYTES % (AUTO) 12.8 % (2.0-9.0); NEUTROPHILS # (AUTO) 4.1 K/uL (1.8-7.7); NEUTROPHILS % (AUTO) 44.8 % (40.0-70.0); PLATELET COUNT (AUTO) 221 K/uL (150-450); RED BLOOD CELL COUNT(AUTO) 4.92 MIL/uL (4.50-5.90); RED CELL DISTRIBUTION WIDTH 14.1 % (11.5-14.5)
[2022-09-11 23:39] LABS: ANION GAP 7 mmol/L (8-16); CALCIUM, TOTAL 8.9 mg/dL (8.8-10.5); CARBON DIOXIDE 30 mmol/L (22-29); CHLORIDE 105 mmol/L (98-107); CREATININE 1.15 mg/dL (0.60-1.30); GLUCOSE,RANDOM 107 mg/dL (70-110); SODIUM SERUM 142 mmol/L (136-145); UREA NITROGEN, BLOOD 18 mg/dL (7-18)
[2022-09-11 23:41] LABS: ALANINE AMINOTRANSFERASE 73 U/L (12-78); ALBUMIN 3.4 g/dL (3.4-5.0); ALKALINE PHOSPHATASE 61 U/L (46-116); ASPARTATE AMINOTRANSFERASE 32 U/L (15-37); BILIRUBIN,TOTAL 0.2 mg/dL (0.1-1.0); TOTAL PROTEIN, SERUM 7.2 g/dL (6.4-8.2)
[2022-09-11 23:42] LABS: GLOMERULAR FILTR. RATE CALC > 60 mL/min (>60)
[2022-09-12] VITALS: BP 124/77
== END 2022-09-12 01:18 | disposition home or self-care (01) ==
LOC: EMS 19:59
DX: R60.0 Localized edema (principal); F20.9 Schizophrenia, unspecified; F32.A Depression, unspecified; F17.210 Nicotine dependence, cigarettes, uncomplicated
CPT/HCPCS: 99283; 80053; 85025; 85379; 36415; G0480

== ENCOUNTER 2022-11-11 04:56 | Emergency (ER) | payer OTHER ==
[~2022-11-11] VITALS: Ht 172.7 cm; Wt 90.9 kg
[2022-11-11 04:57] VITALS: BP 140/78
[2022-11-11 05:43] LABS: COVID AG,FIA SOURCE NASOPHARYNGEAL
[2022-11-11 05:48] LABS: BASOPHILS % (AUTO) 0.6 % (0.0-2.0); EOSINOPHILS % (AUTO) 2.9 % (1.0-6.0); HEMATOCRIT 52.7 % (41-53); HEMOGLOBIN 18.2 g/dL (13.5-17.5); LYMPHOCYTES # (AUTO) 1.9 K/uL (1.0-4.8); LYMPHOCYTES % (AUTO) 19.7 % (22.0-44.0); MEAN CORPUSCULAR HEMOGLOBIN 30.1 pg (26.0-34.0); MEAN CORPUSCULAR HGB CONC 34.5 G/dL (31.0-37.0); MEAN CORPUSCULAR VOLUME 87 fL (80-100); MONOCYTES # (AUTO) 0.8 K/uL (0.1-1.0); MONOCYTES % (AUTO) 8.8 % (2.0-9.0); NEUTROPHILS # (AUTO) 6.4 K/uL (1.8-7.7); PLATELET COUNT (AUTO) 304 K/uL (150-450); RED BLOOD CELL COUNT(AUTO) 6.05 MIL/uL (4.50-5.90); RED CELL DISTRIBUTION WIDTH 13.3 % (11.5-14.5)
[2022-11-11 05:58] LABS: ANION GAP 12 mmol/L (8-16); CALCIUM, TOTAL 9.5 mg/dL (8.8-10.5); CARBON DIOXIDE 23 mmol/L (22-29); CHLORIDE 102 mmol/L (98-107); CREATININE 1.03 mg/dL (0.60-1.30); GLOMERULAR FILTR. RATE CALC > 60 mL/min (>60); GLUCOSE,RANDOM 105 mg/dL (70-110); POTASSIUM 4.3 mmol/L (3.5-5.1); SODIUM SERUM 137 mmol/L (136-145); UREA NITROGEN, BLOOD 9 mg/dL (7-18)
[2022-11-11 05:59] LABS: AMPHET/METH SCREEN,URINE NEGATIVE (NEGATIVE); BARBITURATE SCREEN, URINE NEGATIVE (NEGATIVE); BENZODIAZEPINES SCREEN,URINE NEGATIVE (NEGATIVE); CANNABINOID SCREEN,URINE POSITIVE (NEGATIVE); COCAINE SCREEN,URINE NEGATIVE (NEGATIVE); METHADONE SCREEN, URINE NEGATIVE (NEGATIVE); OPIATE SCREEN,URINE NEGATIVE (NEGATIVE); PHENCYCLIDINE SCREEN,URINE NEGATIVE (NEGATIVE)
[2022-11-11 06:03] LABS: ALANINE AMINOTRANSFERASE 69 U/L (12-78); ALBUMIN 4.4 g/dL (3.4-5.0); ALKALINE PHOSPHATASE 81 U/L (46-116); ASPARTATE AMINOTRANSFERASE 36 U/L (15-37); BILIRUBIN,TOTAL 0.6 mg/dL (0.1-1.0); TOTAL PROTEIN, SERUM 8.7 g/dL (6.4-8.2)
[2022-11-11] MEDS ORDERED: RisperiDONE 1 MG TABLET PO ONE (06:45)
== END 2022-11-11 07:16 | disposition home or self-care (01) ==
LOC: EMS 04:58
DX: F20.9 Schizophrenia, unspecified (principal); F32.A Depression, unspecified; F17.210 Nicotine dependence, cigarettes, uncomplicated; Z20.822 Contact with and (suspected) exposure to COVID-19
CPT/HCPCS: 99284; 87426; 80053; 85025; 36415; 80307 ×2; G0480

== ENCOUNTER → 2022-11-26 | Emergency (ER) | payer OTHER ==
[~2022-11-26] VITALS: Ht 170.2 cm; Wt 90.9 kg
[2022-11-26 18:38] VITALS: BP 130/65
== END | disposition still patient (30) ==
LOC: EMS 18:19
DX: Z53.21 Procedure and treatment not carried out due to patient leaving prior to being seen by health care provider (principal)
CPT/HCPCS: 99281; Z7502

== ENCOUNTER 2023-05-15 05:21 | Emergency (ER) | payer OTHER ==
[~2023-05-15] VITALS: Ht 170.2 cm; Wt 90.9 kg
[2023-05-15 05:32] VITALS: BP 126/71; PULSE 69; RESP 16; TEMP 98.3
== END 2023-05-15 08:33 | disposition home or self-care (01) ==
LOC: EMS 05:21
DX: F20.0 Paranoid schizophrenia (principal); F32.A Depression, unspecified; F17.210 Nicotine dependence, cigarettes, uncomplicated
CPT/HCPCS: 99284; Z7502

== ENCOUNTER 2023-08-16 20:05 | Inpatient (IN) | payer MEDICAID, OTHER ==
[~2023-08-16] VITALS: Ht 175.3 cm; Wt 83.6 kg
[2023-08-16 20:49] LABS: BASOPHILS % (AUTO) 1.2 % (0.0-2.0); EOSINOPHILS % (AUTO) 5.2 % (1.0-6.0); HEMATOCRIT 45.4 % (41-53); HEMOGLOBIN 15.6 g/dL (13.5-17.5); LYMPHOCYTES # (AUTO) 2.8 K/uL (1.0-4.8); LYMPHOCYTES % (AUTO) 32.1 % (22.0-44.0); MEAN CORPUSCULAR HEMOGLOBIN 30.2 pg (26.0-34.0); MEAN CORPUSCULAR HGB CONC 34.2 G/dL (31.0-37.0); MEAN CORPUSCULAR VOLUME 88 fL (80-100); MONOCYTES # (AUTO) 0.9 K/uL (0.1-1.0); MONOCYTES % (AUTO) 10.3 % (2.0-9.0); NEUTROPHILS # (AUTO) 4.4 K/uL (1.8-7.7); NEUTROPHILS % (AUTO) 51.2 % (40.0-70.0); PLATELET COUNT (AUTO) 261 K/uL (150-450); RED BLOOD CELL COUNT(AUTO) 5.15 MIL/uL (4.50-5.90); RED CELL DISTRIBUTION WIDTH 13.8 % (11.5-14.5); WHITE BLOOD COUNT (AUTO) 8.6 K/uL (4.5-11.0)
[2023-08-16 20:55] LABS: ANION GAP 5 mmol/L (8-16); CALCIUM, TOTAL 8.8 mg/dL (8.8-10.5); CARBON DIOXIDE 30 mmol/L (22-29); CHLORIDE 104 mmol/L (98-107); CREATININE 1.22 mg/dL (0.60-1.30); GLOMERULAR FILTR. RATE CALC > 60 mL/min (>60); GLUCOSE,RANDOM 95 mg/dL (70-110); POTASSIUM 3.7 mmol/L (3.5-5.1); SODIUM SERUM 139 mmol/L (136-145); UREA NITROGEN, BLOOD 15 mg/dL (7-18)
[2023-08-16 21:00] LABS: ALANINE AMINOTRANSFERASE 35 U/L (12-78); ALBUMIN 3.5 g/dL (3.4-5.0); ALKALINE PHOSPHATASE 79 U/L (46-116); ASPARTATE AMINOTRANSFERASE 23 U/L (15-37); BILIRUBIN,TOTAL 0.3 mg/dL (0.1-1.0); TOTAL PROTEIN, SERUM 7.2 g/dL (6.4-8.2)
[2023-08-16 21:08] LABS: ALCOHOL, BLOOD (SERUM) < 3 mg/dL (0-10)
[2023-08-16 21:10] LABS: PH,URINE DRUG SCREEN 6.5 (5.0-8.0)
[2023-08-16 21:16] LABS: AMPHET/METH SCREEN,URINE NEGATIVE (NEGATIVE); BARBITURATE SCREEN, URINE NEGATIVE (NEGATIVE); BENZODIAZEPINES SCREEN,URINE NEGATIVE (NEGATIVE); CANNABINOID SCREEN,URINE POSITIVE (NEGATIVE); COCAINE SCREEN,URINE NEGATIVE (NEGATIVE); METHADONE SCREEN, URINE NEGATIVE (NEGATIVE); OPIATE SCREEN,URINE NEGATIVE (NEGATIVE); PHENCYCLIDINE SCREEN,URINE NEGATIVE (NEGATIVE)
[2023-08-16 21:19] LABS: ALCOHOL, URINE DRUG SCREEN NEGATIVE (NEGATIVE)
[2023-08-16 21:23] LABS: COVID AG,FIA SOURCE NASAL SWAB
[2023-08-16 21:40] LABS: SARS-COV2 (COVID) ANTIGEN,FIA Negative (Negative)
[2023-08-16] MEDS ORDERED: ZOLPIDEM TARTRATE 10 MG TABLET PO PRN (21:45)
[2023-08-16] MEDS ORDERED: LORazepam 2 MG TABLET PO PRN (21:45)
[2023-08-16] MEDS ORDERED: OLANZapine 5 MG RAPDIS TABLET PO PRN (21:45)
[2023-08-17 00:54] VITALS: BP 132/95; PULSE 79; RESP 17; TEMP 98
[2023-08-17 00:58] VITALS: BP 132/95; PULSE 79; RESP 17; TEMP 98; O2SAT 96
[2023-08-17] MEDS ORDERED: INFLUENZA VIRUS VACCINE QVS 2023-24 (6MO+)/PF 60 MCG/0.5 ML SYRINGE IM. ONE (02:30)
[2023-08-17 08:35] VITALS: BP 129/89; PULSE 80; RESP 17; TEMP 98.3; O2SAT 96
[2023-08-17] MEDS: NICOTINE 14 MG/24 HOUR PATCH TD SCH (09:10)
[2023-08-17 09:12] LABS: CHOL/HDL RATIO 3.4 (4.2-7.3); FREE T4 (FREE THYROXINE) 1.21 ng/dL (0.76-1.46); THYROID STIMULATING HORMONE 0.82 uIU/mL (0.36-3.74)
[2023-08-17] MEDS ORDERED: TUBERCULIN, PURIFIED PROTEIN DERIVATIVE 5 TU/0.1 ML SYRINGE ID ONE (15:30)
[2023-08-17] MEDS ORDERED: ACETAMINOPHEN 325 MG TABLET PO PRN (15:30)
[2023-08-17] MEDS ORDERED: LOPERAMIDE HCL 2 MG CAPSULE PO PRN (15:30)
[2023-08-17] MEDS ORDERED: PROMETHAZINE HCL 25 MG TABLET PO PRN (15:30)
[2023-08-17] MEDS ORDERED: MAG HYDROX/ALUMINUM HYD/SIMETH ES 30 ML SUSPENSION UDCUP PO PRN (15:30)
[2023-08-17] MEDS ORDERED: MAGNESIUM HYDROXIDE SUSPENSION 30 ML UDCUP PO PRN (15:30)
[2023-08-17] MEDS ORDERED: HydrOXYzine PAMOATE 50 MG CAPSULE PO PRN (15:30)
[2023-08-17] MEDS ORDERED: GuaiFENesin/D-METHORPHAN [SUGAR-FREE] 200-20MG/10 ML SYRUP UDCUP PO PRN (15:30)
[2023-08-17 20:16] VITALS: BP 122/68; PULSE 73; RESP 18; TEMP 97.7
[2023-08-17] MEDS: THIAMINE 100 MG TABLET PO SCH (23:36)
[2023-08-17] MEDS: MELATONIN 5 MG TABLET PO SCH (23:37)
[2023-08-17] MEDS: OLANZapine 5 MG RAPDIS TABLET PO SCH (23:37)
[2023-08-18 08:08] LABS: HEMOGLOBIN A1C 5.5 % (3.8-5.6)
[2023-08-18 08:38] LABS: CHOL/HDL RATIO 3.8 (4.2-7.3); FREE T4 (FREE THYROXINE) 1.04 ng/dL (0.76-1.46); THYROID STIMULATING HORMONE 0.47 uIU/mL (0.36-3.74)
[2023-08-18 08:59] VITALS: BP 123/60; PULSE 67; RESP 17; TEMP 97.6; O2SAT 97
[2023-08-18] MEDS: PALIPERIDONE PALMITATE 234 MG/1.5 ML SYRINGE IM ONE ×2 (09:00→14:17)
[2023-08-18] MEDS: OMEGA-3/DHA/EPA/FISH OIL 1,000 MG CAPSULE PO SCH (10:08)
[2023-08-18] MEDS: NICOTINE 14 MG/24 HOUR PATCH TD SCH (10:08)
[2023-08-18] MEDS: MULTIVITAMINS WITH MINERALS, THERAPEUTIC TABLET PO SCH (10:09)
[2023-08-18] MEDS: FOLIC ACID 1 MG TABLET PO SCH (10:09)
[2023-08-18] MEDS: NALTREXONE HCL 50 MG TABLET PO SCH ×2 (10:17→11:07)
[2023-08-18] MEDS: THIAMINE 100 MG TABLET PO SCH ×2 (11:07→16:20)
[2023-08-18 15:43] VITALS: BP 101/52; PULSE 87; RESP 18; TEMP 97.9; O2SAT 98
[2023-08-18] MEDS: MELATONIN 5 MG TABLET PO SCH (20:47)
[2023-08-18] MEDS: OLANZapine 5 MG RAPDIS TABLET PO SCH (20:47)
[2023-08-18 22:58] VITALS: BP 105/58; PULSE 82; RESP 16; TEMP 97.5; O2SAT 99
[2023-08-19 08:22] VITALS: BP 105/62; PULSE 65; RESP 17; TEMP 97.9; O2SAT 98
[2023-08-19] MEDS: MULTIVITAMINS WITH MINERALS, THERAPEUTIC TABLET PO SCH (09:06)
[2023-08-19] MEDS: NICOTINE 14 MG/24 HOUR PATCH TD SCH (09:06)
[2023-08-19] MEDS: THIAMINE 100 MG TABLET PO SCH ×2 (09:06→16:15)
[2023-08-19] MEDS: FOLIC ACID 1 MG TABLET PO SCH (09:06)
[2023-08-19] MEDS: OMEGA-3/DHA/EPA/FISH OIL 1,000 MG CAPSULE PO SCH (09:06)
[2023-08-19 20:00] VITALS: BP 102/59; PULSE 62; RESP 18; TEMP 97.8; O2SAT 98
[2023-08-19] MEDS: MELATONIN 5 MG TABLET PO SCH (21:50)
[2023-08-19] MEDS: OLANZapine 5 MG RAPDIS TABLET PO SCH (21:50)
[2023-08-20 09:12] VITALS: BP 119/67; PULSE 80; RESP 18; TEMP 97.8; O2SAT 98
[2023-08-20] MEDS: NICOTINE 14 MG/24 HOUR PATCH TD SCH (09:24)
[2023-08-20] MEDS: OMEGA-3/DHA/EPA/FISH OIL 1,000 MG CAPSULE PO SCH (09:24)
[2023-08-20] MEDS: THIAMINE 100 MG TABLET PO SCH ×2 (09:24→16:01)
[2023-08-20] MEDS: FOLIC ACID 1 MG TABLET PO SCH (09:24)
[2023-08-20] MEDS: NALTREXONE HCL 50 MG TABLET PO SCH (09:24)
[2023-08-20] MEDS: MULTIVITAMINS WITH MINERALS, THERAPEUTIC TABLET PO SCH (09:24)
[2023-08-20] MEDS: OLANZapine 5 MG RAPDIS TABLET PO SCH (20:20)
[2023-08-20] MEDS: MELATONIN 5 MG TABLET PO SCH (20:20)
[2023-08-20 20:49] VITALS: BP 116/74; PULSE 74; RESP 18; TEMP 97.9; O2SAT 97
[2023-08-21 08:09] VITALS: BP 119/65; PULSE 76; RESP 17; TEMP 97.6; O2SAT 97
[2023-08-21] MEDS: THIAMINE 100 MG TABLET PO SCH ×2 (08:28→16:19)
[2023-08-21] MEDS: NALTREXONE HCL 50 MG TABLET PO SCH (08:29)
[2023-08-21] MEDS: FOLIC ACID 1 MG TABLET PO SCH (08:29)
[2023-08-21] MEDS: MULTIVITAMINS WITH MINERALS, THERAPEUTIC TABLET PO SCH (08:29)
[2023-08-21] MEDS: OMEGA-3/DHA/EPA/FISH OIL 1,000 MG CAPSULE PO SCH (08:29)
[2023-08-21] MEDS: NICOTINE 14 MG/24 HOUR PATCH TD SCH (08:29)
[2023-08-21 20:15] VITALS: BP 100/65; PULSE 90; RESP 18; TEMP 98; O2SAT 98
[2023-08-21] MEDS: OLANZapine 5 MG RAPDIS TABLET PO SCH (20:22)
[2023-08-21] MEDS: MELATONIN 5 MG TABLET PO SCH (20:22)
[2023-08-22 08:09] VITALS: BP 100/60; PULSE 86; RESP 17; TEMP 98; O2SAT 98
[2023-08-22] MEDS: THIAMINE 100 MG TABLET PO SCH ×2 (08:44→16:34)
[2023-08-22] MEDS: NALTREXONE HCL 50 MG TABLET PO SCH (08:44)
[2023-08-22] MEDS: MULTIVITAMINS WITH MINERALS, THERAPEUTIC TABLET PO SCH (08:44)
[2023-08-22] MEDS: OMEGA-3/DHA/EPA/FISH OIL 1,000 MG CAPSULE PO SCH (08:44)
[2023-08-22] MEDS: FOLIC ACID 1 MG TABLET PO SCH (08:44)
[2023-08-22] MEDS: NICOTINE 14 MG/24 HOUR PATCH TD SCH (08:45)
[2023-08-22] MEDS ORDERED: PALIPERIDONE PALMITATE 156 MG/ML SYRINGE IM ONE (09:00)
[2023-08-22 09:15] VITALS: BP 110/74; PULSE 80; RESP 18; TEMP 98; O2SAT 99
[2023-08-22] MEDS: MELATONIN 5 MG TABLET PO SCH (20:33)
[2023-08-22] MEDS: OLANZapine 5 MG RAPDIS TABLET PO SCH (20:33)
[2023-08-22 20:39] VITALS: BP 105/68; PULSE 64; RESP 18; TEMP 97.8; O2SAT 99
[2023-08-23 08:43] VITALS: BP 115/63; PULSE 80; RESP 17; TEMP 98.1; O2SAT 96
[2023-08-23] MEDS: NICOTINE 14 MG/24 HOUR PATCH TD SCH (08:56)
[2023-08-23] MEDS: MULTIVITAMINS WITH MINERALS, THERAPEUTIC TABLET PO SCH (08:57)
[2023-08-23] MEDS: NALTREXONE HCL 50 MG TABLET PO SCH (08:57)
[2023-08-23] MEDS: OMEGA-3/DHA/EPA/FISH OIL 1,000 MG CAPSULE PO SCH (08:57)
[2023-08-23] MEDS: THIAMINE 100 MG TABLET PO SCH (08:57)
[2023-08-23] MEDS: FOLIC ACID 1 MG TABLET PO SCH (08:57)
[2023-08-23] MEDS ORDERED: OLAN5TAB94 PO (14:20)
[2023-08-23] MEDS ORDERED: MELA5TAB40 PO (14:20)
[2023-08-23] MEDS ORDERED: NALT50TA PO (14:20)
[2023-08-23] MEDS ORDERED: OMEG-135 PO (14:20)
== END 2023-08-23 18:37 | disposition home or self-care (01) | DRG 750 ==
LOC: EMS 20:07 → B2S 22:12
PROVIDERS: ADMIT Psychiatry & Neurology Psychiatry; ATTEND Psychiatry & Neurology Psychiatry
PROC: GZHZZZZ Group Psychotherapy (ICD-10-PCS; principal; 2023-08-17)
DX: F25.9 Schizoaffective disorder, unspecified (principal); G40.909 Epilepsy, unspecified, not intractable, without status epilepticus; F17.200 Nicotine dependence, unspecified, uncomplicated; F32.A Depression, unspecified; F41.9 Anxiety disorder, unspecified; F94.0 Selective mutism; I10 Essential (primary) hypertension; J44.9 Chronic obstructive pulmonary disease, unspecified; Z20.822 Contact with and (suspected) exposure to COVID-19
CPT/HCPCS: 80053; 80061; 80307; 83036; 84439; 84443; 85025; 86592; 99285; G0480; Q9967

== ENCOUNTER 2023-10-07 22:06 | Emergency (ER) | payer MEDICAID, OTHER ==
[~2023-10-07] VITALS: Ht 177.8 cm; Wt 81.8 kg
[~2023-10-07 22:06] MED LIST changes: -DIVA-112 PO; -LITH300C3 PO; +MELA5TAB40 PO; +NALT50TA PO; +OLAN5TAB94 PO; +OMEG-135 PO; -RISP3TAB63 PO
[2023-10-07 22:16] VITALS: BP 110/53; PULSE 85; RESP 14; TEMP 98.2
== END 2023-10-07 22:49 | disposition still patient (30) ==
LOC: EMS 22:11
DX: F20.9 Schizophrenia, unspecified (principal); Z53.21 Procedure and treatment not carried out due to patient leaving prior to being seen by health care provider
CPT/HCPCS: 99281; Z7502

== ENCOUNTER 2024-09-07 18:26 | Inpatient (IN) | payer MEDICAID ==
[~2024-09-07] VITALS: Ht 172.7 cm; Wt 90.7 kg
[~2024-09-07 18:26] MED LIST changes: -MELA5TAB40 PO; -NALT50TA PO; +OLAN15TA21 PO; +OLAN5TAB52 PO; -OLAN5TAB94 PO; -OMEG-135 PO
[2024-09-07] MEDS ORDERED: LORazepam 2 MG TABLET PO PRN (20:15)
[2024-09-07] MEDS ORDERED: ZOLPIDEM TARTRATE 10 MG TABLET PO PRN (20:15)
[2024-09-07] MEDS ORDERED: HALOPERIDOL 5 MG TABLET PO PRN (20:15)
[2024-09-07] MEDS ORDERED: LOPERAMIDE HCL 2 MG CAPSULE PO PRN (20:15)
[2024-09-07] MEDS ORDERED: MAG HYDROX/ALUMINUM HYD/SIMETH ES 30 ML SUSPENSION UDCUP PO PRN (20:15)
[2024-09-07] MEDS ORDERED: MAGNESIUM HYDROXIDE SUSPENSION 30 ML UDCUP PO PRN (20:15)
[2024-09-08 08:10] LABS: BASOPHILS % (AUTO) 1.1 % (0.0-2.0); HEMATOCRIT 47.4 % (41-53); HEMOGLOBIN 16.3 g/dL (13.5-17.5); LYMPHOCYTES # (AUTO) 2.2 K/uL (1.0-4.8); LYMPHOCYTES % (AUTO) 29.5 % (22.0-44.0); MEAN CORPUSCULAR HEMOGLOBIN 30.5 pg (26.0-34.0); MEAN CORPUSCULAR HGB CONC 34.3 G/dL (31.0-37.0); MEAN CORPUSCULAR VOLUME 89 fL (80-100); MONOCYTES # (AUTO) 0.9 K/uL (0.1-1.0); MONOCYTES % (AUTO) 11.5 % (2.0-9.0); NEUTROPHILS % (AUTO) 52.9 % (40.0-70.0); PLATELET COUNT (AUTO) 223 K/uL (150-450); RED BLOOD CELL COUNT(AUTO) 5.33 MIL/uL (4.50-5.90); RED CELL DISTRIBUTION WIDTH 13.6 % (11.5-14.5); WHITE BLOOD COUNT (AUTO) 7.5 K/uL (4.5-11.0)
[2024-09-08 08:35] LABS: ALANINE AMINOTRANSFERASE 54 U/L (12-78); ALBUMIN 3.4 g/dL (3.4-5.0); ALKALINE PHOSPHATASE 77 U/L (46-116); ANION GAP 7 mmol/L (8-16); ASPARTATE AMINOTRANSFERASE 29 U/L (15-37); BILIRUBIN,TOTAL 0.4 mg/dL (0.1-1.0); CALCIUM, TOTAL 8.6 mg/dL (8.8-10.5); CARBON DIOXIDE 30 mmol/L (22-29); CHLORIDE 105 mmol/L (98-107); CREATININE 1.09 mg/dL (0.60-1.30); GLOMERULAR FILTR. RATE CALC > 60 mL/min (>60); GLUCOSE,RANDOM 99 mg/dL (70-110); SODIUM SERUM 142 mmol/L (136-145); THYROID STIMULATING HORMONE 1.08 uIU/mL (0.36-3.74); UREA NITROGEN, BLOOD 13 mg/dL (7-18)
[2024-09-08 13:19] VITALS: BP 141/88; PULSE 80; RESP 18; TEMP 98; O2SAT 96
[2024-09-08] MEDS ORDERED: INFLUENZA VIRUS VACCINE TVS (6MO+) 2024-25/PF 45 MCG/0.5 ML SYRINGE IM. ONE (14:15)
[2024-09-08] MEDS ORDERED: PNEUMOCOCCAL VACCINE POLYVALENT 0.5 ML SYRINGE [PPSV23] IM. ONE (14:15)
[2024-09-08] MEDS ORDERED: DOCUSATE SODIUM 100 MG CAPSULE PO PRN (15:30)
[2024-09-08 20:20] VITALS: BP 126/85; PULSE 62; RESP 18; TEMP 97.1; O2SAT 100
[2024-09-09 08:20] VITALS: BP 112/67; PULSE 63; RESP 18; TEMP 97.8; O2SAT 98
[2024-09-09 20:17] VITALS: BP 113/74; PULSE 76; RESP 16; TEMP 97.9; O2SAT 100
[2024-09-09] MEDS: OLANZapine 7.5 MG TABLET PO SCH (20:31)
[2024-09-09] MEDS: ACETAMINOPHEN 325 MG TABLET PO PRN (20:39)
[2024-09-10 08:11] VITALS: BP 105/66; PULSE 69; RESP 18; TEMP 96.6; O2SAT 100
[2024-09-10 20:00] VITALS: BP 112/68; PULSE 62; RESP 18; TEMP 97.7; O2SAT 98
[2024-09-11 08:28] VITALS: BP 114/67; PULSE 61; RESP 18; TEMP 98; O2SAT 98
[2024-09-11 20:11] VITALS: BP 111/71; PULSE 80; RESP 18; TEMP 97.1; O2SAT 98
[2024-09-12 08:30] VITALS: BP 100/70; PULSE 67; RESP 18; TEMP 97; O2SAT 98
[2024-09-12] MEDS ORDERED: BACITRACIN 28 GM OINTMENT TP SCH (09:45)
[2024-09-12] MEDS: BACITRACIN 28 GM OINTMENT TP SCH (11:08)
[2024-09-12 20:10] VITALS: BP 139/86; PULSE 87; RESP 18; TEMP 96.9; O2SAT 99
== END 2024-09-12 18:02 | DRG 750 ==
LOC: B2S 09-08 11:26
PROVIDERS: ADMIT Psychiatry & Neurology Psychiatry; ATTEND Psychiatry & Neurology Psychiatry
PROC: GZHZZZZ Group Psychotherapy (ICD-10-PCS; principal; 2024-09-09)
DX: F25.1 Schizoaffective disorder, depressive type (principal); R56.9 Unspecified convulsions; F41.9 Anxiety disorder, unspecified; F10.10 Alcohol abuse, uncomplicated; I10 Essential (primary) hypertension; F12.10 Cannabis abuse, uncomplicated; Y90.0 Blood alcohol level of less than 20 mg/100 ml
CPT/HCPCS: 80053; 84443; 85025

== ENCOUNTER 2024-09-07 20:08 | Emergency (ER) | payer MEDICAID, OTHER ==
[~2024-09-07] VITALS: Ht 172.7 cm; Wt 92.0 kg
[2024-09-07 22:35] LABS: EOSINOPHILS % (AUTO) 4.8 % (1.0-6.0); HEMATOCRIT 47.8 % (41-53); HEMOGLOBIN 16.1 g/dL (13.5-17.5); MEAN CORPUSCULAR HEMOGLOBIN 29.8 pg (26.0-34.0); MEAN CORPUSCULAR HGB CONC 33.7 G/dL (31.0-37.0); MEAN CORPUSCULAR VOLUME 89 fL (80-100); MONOCYTES % (AUTO) 10.8 % (2.0-9.0); NEUTROPHILS # (AUTO) 3.4 K/uL (1.8-7.7); NEUTROPHILS % (AUTO) 38.4 % (40.0-70.0); PLATELET COUNT (AUTO) 235 K/uL (150-450); RED CELL DISTRIBUTION WIDTH 13.5 % (11.5-14.5); WHITE BLOOD COUNT (AUTO) 8.9 K/uL (4.5-11.0)
[2024-09-07 22:38] VITALS: TEMP 98.9
[2024-09-07 22:39] LABS: ANION GAP 8 mmol/L (8-16); CALCIUM, TOTAL 8.4 mg/dL (8.8-10.5); CARBON DIOXIDE 28 mmol/L (22-29); CHLORIDE 104 mmol/L (98-107); CREATININE 1.02 mg/dL (0.60-1.30); GLOMERULAR FILTR. RATE CALC > 60 mL/min (>60); GLUCOSE,RANDOM 98 mg/dL (70-110); POTASSIUM 4.1 mmol/L (3.5-5.1); SODIUM SERUM 140 mmol/L (136-145); UREA NITROGEN, BLOOD 15 mg/dL (7-18)
[2024-09-07 23:02] LABS: ALCOHOL, BLOOD (SERUM) < 3 mg/dL (0-10)
[2024-09-07 23:59] LABS: COVID AG,FIA SOURCE NASAL SWAB
[2024-09-08 00:03] LABS: SARS-COV2 (COVID) ANTIGEN,FIA Negative (Negative)
[2024-09-08 00:10] LABS: AMPHET/METH SCREEN,URINE NEGATIVE (NEGATIVE); BARBITURATE SCREEN, URINE NEGATIVE (NEGATIVE); BENZODIAZEPINES SCREEN,URINE NEGATIVE (NEGATIVE); CANNABINOID SCREEN,URINE POSITIVE (NEGATIVE); COCAINE SCREEN,URINE NEGATIVE (NEGATIVE); METHADONE SCREEN, URINE NEGATIVE (NEGATIVE); OPIATE SCREEN,URINE NEGATIVE (NEGATIVE); PHENCYCLIDINE SCREEN,URINE NEGATIVE (NEGATIVE)
[2024-09-08 00:14] LABS: ALCOHOL, URINE DRUG SCREEN NEGATIVE (NEGATIVE)
[2024-09-08] MEDS: LORazepam 2 MG TABLET PO ONE (01:28)
[2024-09-08 10:15] VITALS: BP 131/74; PULSE 81; RESP 18; O2SAT 98
== END 2024-09-08 12:01 | disposition admitted as inpatient to this hospital (09) ==
LOC: EMS 20:08
DX: F20.9 Schizophrenia, unspecified (principal); F12.90 Cannabis use, unspecified, uncomplicated; F11.90 Opioid use, unspecified, uncomplicated; Z91.030 Bee allergy status; Z20.822 Contact with and (suspected) exposure to COVID-19
CPT/HCPCS: 99285; 87426; 80048; 85025; 36415; 80307; G0480

== ENCOUNTER 2025-01-16 18:42 | Emergency (ER) | payer MEDICAID, OTHER ==
[~2025-01-16 18:42] MED LIST changes: -OLAN5TAB52 PO
== END 2025-01-16 19:55 | disposition left against medical advice (07) ==
LOC: EMS 18:42
DX: Z53.21 Procedure and treatment not carried out due to patient leaving prior to being seen by health care provider (principal)

== ENCOUNTER 2025-02-01 00:06 | Inpatient (IN) | payer MEDICAID, OTHER ==
[~2025-02-01] VITALS: Ht 170.2 cm; Wt 90.7 kg
[2025-02-01] MEDS: DiphenhydrAMINE HCL 50 MG/ML VIAL IM ONE (04:36)
[2025-02-01] MEDS: HALOPERIDOL LACTATE 5 MG/ML VIAL IM ONE (04:36)
[2025-02-01] MEDS: LORazepam 2 MG/ML VIAL IM ONE (04:36)
[2025-02-01 04:51] LABS: COVID AG,FIA SOURCE NASAL SWAB
[2025-02-01 04:53] LABS: BASOPHILS % (AUTO) 0.8 % (0.0-2.0); EOSINOPHILS % (AUTO) 5.8 % (1.0-6.0); HEMATOCRIT 49.6 % (41-53); LYMPHOCYTES % (AUTO) 30.3 % (22.0-44.0); MEAN CORPUSCULAR HEMOGLOBIN 29.6 pg (26.0-34.0); MEAN CORPUSCULAR HGB CONC 34.2 G/dL (31.0-37.0); MEAN CORPUSCULAR VOLUME 87 fL (80-100); MONOCYTES # (AUTO) 0.9 K/uL (0.1-1.0); MONOCYTES % (AUTO) 9.6 % (2.0-9.0); NEUTROPHILS # (AUTO) 5.3 K/uL (1.8-7.7); NEUTROPHILS % (AUTO) 53.5 % (40.0-70.0); PLATELET COUNT (AUTO) 250 K/uL (150-450); RED BLOOD CELL COUNT(AUTO) 5.73 MIL/uL (4.50-5.90); RED CELL DISTRIBUTION WIDTH 13.3 % (11.5-14.5); WHITE BLOOD COUNT (AUTO) 9.9 K/uL (4.5-11.0)
[2025-02-01 05:05] LABS: ANION GAP 6 mmol/L (8-16); CALCIUM, TOTAL 8.7 mg/dL (8.8-10.5); CARBON DIOXIDE 29 mmol/L (22-29); CHLORIDE 102 mmol/L (98-107); CREATININE 1.03 mg/dL (0.60-1.30); GLOMERULAR FILTR. RATE CALC > 60 mL/min (>60); GLUCOSE,RANDOM 110 mg/dL (70-110); POTASSIUM 3.7 mmol/L (3.5-5.1); SODIUM SERUM 137 mmol/L (136-145); UREA NITROGEN, BLOOD 15 mg/dL (7-18)
[2025-02-01 05:35] LABS: SARS-COV2 (COVID) ANTIGEN,FIA Negative (Negative)
[2025-02-01] MEDS ORDERED: ZOLPIDEM TARTRATE 10 MG TABLET PO PRN (11:30)
[2025-02-01] MEDS ORDERED: LORazepam 2 MG TABLET PO PRN (11:30)
[2025-02-01] MEDS ORDERED: haloperidoL 5 MG TABLET PO PRN (11:30)
[2025-02-01 15:30] VITALS: O2SAT 100
[2025-02-01 18:56] VITALS: BP 110/82; PULSE 72; RESP 16; TEMP 98.4; O2SAT 98
[2025-02-01] MEDS: OLANZapine 10 MG TABLET PO SCH (21:00)
[2025-02-02] MEDS ORDERED: MAGNESIUM HYDROXIDE SUSPENSION 30 ML UDCUP PO PRN (07:00)
[2025-02-02] MEDS ORDERED: MAG HYDROX/ALUMINUM HYD/SIMETH ES 30 ML SUSPENSION UDCUP PO PRN (07:00)
[2025-02-02] MEDS ORDERED: BENZOCAINE/MENTHOL [CEPACOL] LOZENGE PO PRN (07:00)
[2025-02-02] MEDS ORDERED: LOPERAMIDE HCL 2 MG CAPSULE PO PRN (07:00)
[2025-02-02] MEDS ORDERED: PETROLATUM,WHITE 28 GM JELLY TP PRN (07:00)
[2025-02-02] MEDS ORDERED: BACITRACIN 28 GM OINTMENT TP PRN (07:00)
[2025-02-02] MEDS ORDERED: IBUPROFEN 600 MG TABLET PO PRN (07:00)
[2025-02-02] MEDS ORDERED: OMEPRAZOLE 20 MG CAPSULE PO PRN (07:00)
[2025-02-02] MEDS ORDERED: DOCUSATE SODIUM 100 MG CAPSULE PO PRN (07:00)
[2025-02-02] MEDS ORDERED: ACETAMINOPHEN 325 MG TABLET PO PRN (07:00)
[2025-02-02] MEDS ORDERED: CloNIDine HCL 0.1 MG TABLET PO PRN (07:00)
[2025-02-02] MEDS ORDERED: ONDANSETRON 4 MG TABLET PO PRN (07:00)
[2025-02-02] MEDS ORDERED: ALBUTEROL SULFATE HFA 90 MCG/PUFF 8 GM INHALER IH PRN (07:00)
[2025-02-02 08:46] VITALS: BP 114/72; PULSE 65; RESP 16; TEMP 97.6; O2SAT 98
[2025-02-02 20:04] VITALS: BP 125/74; PULSE 64; RESP 17; TEMP 97.7; O2SAT 100
[2025-02-03 04:06] LABS: HEPATITIS C AB (EIA) Non Reactive (Non Reactive)
[2025-02-03 09:10] VITALS: BP 106/60; PULSE 74; RESP 17; TEMP 98.4; O2SAT 99
[2025-02-03 20:21] VITALS: BP 126/88; PULSE 72; RESP 17; TEMP 97.7; O2SAT 97
[2025-02-04 08:30] VITALS: BP 120/71; PULSE 82; RESP 18; TEMP 97.9; O2SAT 100
[2025-02-04] MEDS ORDERED: OLAN10TA74 PO (12:02)
== END 2025-02-04 15:00 | disposition home or self-care (01) | DRG 750 ==
LOC: EMS 00:08 → B2S 15:26
PROVIDERS: ADMIT Psychiatry & Neurology Psychiatry; ATTEND Psychiatry & Neurology Psychiatry
PROC: GZHZZZZ Group Psychotherapy (ICD-10-PCS; principal; 2025-02-02)
DX: F25.1 Schizoaffective disorder, depressive type (principal); G40.909 Epilepsy, unspecified, not intractable, without status epilepticus; R45.851 Suicidal ideations; F41.9 Anxiety disorder, unspecified; Z20.822 Contact with and (suspected) exposure to COVID-19; G47.00 Insomnia, unspecified; F12.90 Cannabis use, unspecified, uncomplicated; I10 Essential (primary) hypertension; K59.00 Constipation, unspecified; Z87.891 Personal history of nicotine dependence; Z91.51 Personal history of suicidal behavior; Z91.030 Bee allergy status
CPT/HCPCS: 80048; 85025; 86803; 87340; 96372; 99291; G0480; J1200; J1630; J2060

== ENCOUNTER 2025-02-16 02:21 | Emergency (ER) | payer MEDICAID, OTHER ==
[~2025-02-16] VITALS: Ht 177.8 cm; Wt 72.7 kg
[~2025-02-16 02:21] MED LIST changes: +OLAN10TA74 PO; -OLAN15TA21 PO
[2025-02-16 03:25] LABS: ANION GAP 4 mmol/L (8-16); CALCIUM, TOTAL 8.9 mg/dL (8.8-10.5); CARBON DIOXIDE 28 mmol/L (22-29); CHLORIDE 106 mmol/L (98-107); CREATININE 0.91 mg/dL (0.60-1.30); GLOMERULAR FILTR. RATE CALC > 60 mL/min (>60); GLUCOSE,RANDOM 106 mg/dL (70-110); POTASSIUM 4.4 mmol/L (3.5-5.1); SODIUM SERUM 138 mmol/L (136-145); UREA NITROGEN, BLOOD 9 mg/dL (7-18)
[2025-02-16 03:28] LABS: BASOPHILS % (AUTO) 0.9 % (0.0-2.0); EOSINOPHILS % (AUTO) 5.1 % (1.0-6.0); HEMATOCRIT 48.7 % (41-53); HEMOGLOBIN 16.6 g/dL (13.5-17.5); LYMPHOCYTES # (AUTO) 3.4 K/uL (1.0-4.8); LYMPHOCYTES % (AUTO) 40.3 % (22.0-44.0); MEAN CORPUSCULAR HEMOGLOBIN 29.5 pg (26.0-34.0); MEAN CORPUSCULAR HGB CONC 34.1 G/dL (31.0-37.0); MEAN CORPUSCULAR VOLUME 87 fL (80-100); MONOCYTES % (AUTO) 12.4 % (2.0-9.0); NEUTROPHILS # (AUTO) 3.5 K/uL (1.8-7.7); NEUTROPHILS % (AUTO) 41.3 % (40.0-70.0); PLATELET COUNT (AUTO) 250 K/uL (150-450); RED BLOOD CELL COUNT(AUTO) 5.62 MIL/uL (4.50-5.90); RED CELL DISTRIBUTION WIDTH 13.8 % (11.5-14.5); WHITE BLOOD COUNT (AUTO) 8.4 K/uL (4.5-11.0)
[2025-02-16 06:18] VITALS: TEMP 97.9
[2025-02-16 06:39] LABS: COVID AG,FIA SOURCE NASAL SWAB
[2025-02-16 06:43] LABS: APPEARANCE,URINE CLEAR (CLEAR); BILIRUBIN,URINE NEGATIVE (NEGATIVE); COLOR,URINE YELLOW (YELLOW); GLUCOSE, URINE (UA) NEGATIVE (NEGATIVE); KETONES,URINE NEGATIVE (NEGATIVE); LEUKOCYTE ESTERASE ,URINE NEGATIVE (NEGATIVE); NITRATE,URINE NEGATIVE (NEGATIVE); OCCULT BLOOD,URINE NEGATIVE (NEGATIVE); PH,URINE 5.5 (5.0-8.0); PH,URINE DRUG SCREEN 5.5 (5.0-8.0); PROTEIN,URINE NEGATIVE (NEGATIVE); SPECIFIC GRAVITIY, URINE 1.016 (1.003-1.030); UROBILINOGEN,URINE <=1.0 mg/dL (<=1.0)
[2025-02-16 06:50] LABS: ALCOHOL, URINE DRUG SCREEN NEGATIVE (NEGATIVE); AMPHET/METH SCREEN,URINE NEGATIVE (NEGATIVE); BARBITURATE SCREEN, URINE NEGATIVE (NEGATIVE); BENZODIAZEPINES SCREEN,URINE NEGATIVE (NEGATIVE); CANNABINOID SCREEN,URINE POSITIVE (NEGATIVE); COCAINE SCREEN,URINE NEGATIVE (NEGATIVE); METHADONE SCREEN, URINE NEGATIVE (NEGATIVE); OPIATE SCREEN,URINE NEGATIVE (NEGATIVE); PHENCYCLIDINE SCREEN,URINE NEGATIVE (NEGATIVE)
[2025-02-16 07:00] LABS: SARS-COV2 (COVID) ANTIGEN,FIA Negative (Negative)
[2025-02-16 13:43] VITALS: BP 108/52; PULSE 88; RESP 16; O2SAT 97
== END 2025-02-16 16:12 | disposition left against medical advice (07) ==
LOC: EMS 02:22
DX: E11.9 Type 2 diabetes mellitus without complications (principal); F20.9 Schizophrenia, unspecified; F12.90 Cannabis use, unspecified, uncomplicated; F17.210 Nicotine dependence, cigarettes, uncomplicated; Z00.8 Encounter for other general examination; Z91.030 Bee allergy status; Z79.899 Other long term (current) drug therapy; Z20.822 Contact with and (suspected) exposure to COVID-19
CPT/HCPCS: 99285; 87426; 80048; 81003; 85025; 36415; 80307; G0480

== ENCOUNTER 2025-05-28 16:21 | Inpatient (IN) | payer MEDICAID, OTHER ==
[~2025-05-28] VITALS: Ht 172.7 cm; Wt 89.1 kg
[2025-05-28 17:55] LABS: COVID AG,FIA SOURCE NASAL SWAB
[2025-05-28 17:57] LABS: PLATELET COUNT (AUTO) 240 K/uL (150-450); RED BLOOD CELL COUNT(AUTO) 5.50 MIL/uL (4.50-5.90); RED CELL DISTRIBUTION WIDTH 13.4 % (11.5-14.5); WHITE BLOOD COUNT (AUTO) 7.7 K/uL (4.5-11.0)
[2025-05-28 18:05] LABS: CALCIUM, TOTAL 8.8 mg/dL (8.8-10.5); CREATININE 1.06 mg/dL (0.60-1.30); GLOMERULAR FILTR. RATE CALC > 60 mL/min (>60); GLUCOSE,RANDOM 108 mg/dL (70-110); SODIUM SERUM 140 mmol/L (136-145); UREA NITROGEN, BLOOD 16 mg/dL (7-18)
[2025-05-28 18:21] LABS: SARS-COV2 (COVID) ANTIGEN,FIA Negative (Negative)
[2025-05-28 21:06] VITALS: O2SAT 98
[2025-05-28] MEDS ORDERED: ZOLPIDEM TARTRATE 10 MG TABLET PO PRN (21:30)
[2025-05-28 22:27] VITALS: BP 116/61; PULSE 73; RESP 17; TEMP 97.3; O2SAT 98
[2025-05-28] MEDS ORDERED: ACETAMINOPHEN 325 MG TABLET PO PRN (23:15)
[2025-05-28] MEDS ORDERED: MAGNESIUM HYDROXIDE SUSPENSION 30 ML UDCUP PO PRN (23:15)
[2025-05-28] MEDS ORDERED: MAG HYDROX/ALUMINUM HYD/SIMETH ES 30 ML SUSPENSION UDCUP PO PRN (23:15)
[2025-05-28] MEDS ORDERED: PROMETHAZINE HCL 25 MG TABLET PO PRN (23:15)
[2025-05-28] MEDS ORDERED: LOPERAMIDE HCL 2 MG CAPSULE PO PRN (23:15)
[2025-05-28] MEDS ORDERED: GuaiFENesin/D-METHORPHAN [SUGAR-FREE] 200-20MG/10 ML SYRUP UDCUP PO PRN (23:15)
[2025-05-28 23:40] LABS: GLUCOMETER DEV NAME(LOC) BV3S.2; GLUCOSE,POINT OF CARE 107 MG/DL (70-110)
[2025-05-29] MEDS: DIVALPROEX SODIUM 500 MG ER TABLET PO SCH (08:08)
[2025-05-29] MEDS: THIAMINE 100 MG TABLET PO SCH (08:08)
[2025-05-29] MEDS: NALTREXONE HCL 50 MG TABLET PO SCH (08:08)
[2025-05-29] MEDS: FOLIC ACID 1 MG TABLET PO SCH (08:08)
[2025-05-29] MEDS: MULTIVITAMINS WITH MINERALS, THERAPEUTIC TABLET PO SCH (08:08)
[2025-05-29 08:09] VITALS: BP 128/73; PULSE 61; RESP 18; TEMP 97.8; O2SAT 100
[2025-05-29] MEDS ORDERED: PALIPERIDONE PALMITATE 234 MG/1.5 ML SYRINGE IM ONE (09:00)
[2025-05-29 09:40] LABS: PLATELET COUNT (AUTO) 230 K/uL (150-450); RED BLOOD CELL COUNT(AUTO) 5.79 MIL/uL (4.50-5.90); RED CELL DISTRIBUTION WIDTH 13.8 % (11.5-14.5); WHITE BLOOD COUNT (AUTO) 8.7 K/uL (4.5-11.0)
[2025-05-29 10:58] LABS: ASPARTATE AMINOTRANSFERASE 30 U/L (15-37); CALCIUM, TOTAL 8.8 mg/dL (8.8-10.5); CHOL/HDL RATIO 3.8 (4.2-7.3); CREATININE 0.99 mg/dL (0.60-1.30); GLOMERULAR FILTR. RATE CALC > 60 mL/min (>60); GLUCOSE,RANDOM 79 mg/dL (70-110); LDL CHOL (CALC.) 122 mg/dL (0-130); SODIUM SERUM 141 mmol/L (136-145); TOTAL PROTEIN, SERUM 6.8 g/dL (6.4-8.2); UREA NITROGEN, BLOOD 13 mg/dL (7-18)
[2025-05-29 20:16] VITALS: RESP 16
[2025-05-29] MEDS: MELATONIN 5 MG TABLET PO SCH (20:20)
[2025-05-29] MEDS: OLANZapine 5 MG RAPDIS TABLET PO SCH (20:20)
[2025-05-30 08:59] VITALS: BP 107/67; PULSE 89; RESP 17; TEMP 98.2; O2SAT 99
[2025-05-30 20:22] VITALS: BP 126/75; PULSE 76; RESP 17; TEMP 97.3; O2SAT 100
[2025-05-31 08:17] VITALS: BP 113/80; PULSE 64; RESP 17; TEMP 97.2; O2SAT 97
[2025-05-31] MEDS: TUBERCULIN, PURIFIED PROTEIN DERIVATIVE 5 TU/0.1 ML SYRINGE ID ONE (10:50)
[2025-05-31] MEDS: RisperiDONE ER SUSPENSION 250 MG/0.7 ML PRE-FILLED SYRINGE SQ ONE (17:40)
[2025-05-31 20:20] VITALS: BP 117/86; PULSE 66; RESP 17; TEMP 97.4; O2SAT 98
[2025-05-31] MEDS ORDERED: RISP250S SQ (23:38)
[2025-05-31] MEDS ORDERED: DIVA-153 PO (23:38)
[2025-05-31] MEDS ORDERED: MELA5TAB40 PO (23:38)
[2025-05-31] MEDS ORDERED: NALT50TA33 PO (23:38)
[2025-05-31] MEDS ORDERED: OLAN5TAB94 PO (23:38)
[2025-06-01 08:10] VITALS: BP 103/61; PULSE 74; RESP 17; TEMP 97.3; O2SAT 99
[2025-06-02] MEDS ORDERED: PALIPERIDONE PALMITATE 156 MG/ML SYRINGE IM ONE (09:00)
[2025-07-29] MEDS ORDERED: RisperiDONE ER SUSPENSION 250 MG/0.7 ML PRE-FILLED SYRINGE SQ SCH (09:00)
== END 2025-06-01 17:40 | disposition home or self-care (01) | DRG 761 ==
LOC: EMS 16:21 → B3A 21:30
PROVIDERS: ADMIT Psychiatry & Neurology Psychiatry; ATTEND Psychiatry & Neurology Psychiatry
PROC: GZ58ZZZ Individual Psychotherapy, Cognitive-Behavioral (ICD-10-PCS; principal; 2025-05-28)
PROC: GZ56ZZZ Individual Psychotherapy, Supportive (ICD-10-PCS; 2025-05-29)
DX: F25.9 Schizoaffective disorder, unspecified (principal); R45.851 Suicidal ideations; E11.9 Type 2 diabetes mellitus without complications; J44.9 Chronic obstructive pulmonary disease, unspecified; Z20.822 Contact with and (suspected) exposure to COVID-19; Z55.9 Problems related to education and literacy, unspecified; Z59.9 Problem related to housing and economic circumstances, unspecified; Z63.9 Problem related to primary support group, unspecified; Z65.3 Problems related to other legal circumstances; Z91.199 Patient's noncompliance with other medical treatment and regimen due to unspecified reason
CPT/HCPCS: 80048; 80053; 80061; 80164; 82962; 83036; 84436; 84439; 84443; 85025; 86592; 99285; G0480

== ENCOUNTER 2025-06-19 21:45 | Emergency (ER) | payer MEDICAID, OTHER ==
[~2025-06-19] VITALS: Ht 170.2 cm; Wt 81.8 kg
[~2025-06-19 21:45] MED LIST changes: +DIVA-153 PO; +MELA5TAB40 PO; +NALT50TA33 PO; +OLAN5TAB94 PO; +RISP250S SQ
[2025-06-19 21:52] VITALS: BP 115/67; PULSE 86; RESP 16; TEMP 98.2; O2SAT 98
== END 2025-06-20 01:10 | disposition left against medical advice (07) ==
LOC: EMS 21:45
DX: F41.9 Anxiety disorder, unspecified (principal); F20.9 Schizophrenia, unspecified; Z53.21 Procedure and treatment not carried out due to patient leaving prior to being seen by health care provider